=== PATIENT | male | born 1945 | race Caucasian/White ===

== ENCOUNTER → 2020-09-21 13:34 | Outpatient (CLI) | payer MEDICARE, SELFPAY | PROVIDERS: PCP Internal Medicine; Referring Provider Dermatology; Visit Provider Family Medicine | DX: S61.203A Unspecified open wound of left middle finger without damage to nail, initial encounter (principal) | CPT/HCPCS: 11042; 99203; 99213 ==

== ENCOUNTER → 2020-09-23 10:05 | Outpatient (CLI) | payer MEDICARE, SELFPAY | PROVIDERS: PCP Internal Medicine; Referring Provider Internal Medicine; Visit Provider Family Medicine | DX: S61.203A Unspecified open wound of left middle finger without damage to nail, initial encounter (principal) | CPT/HCPCS: 99212 ==

== ENCOUNTER → 2020-09-28 10:41 | Outpatient (CLI) | payer MEDICARE, SELFPAY | PROVIDERS: PCP Internal Medicine; Referring Provider Internal Medicine; Visit Provider Family Medicine | DX: S61.203A Unspecified open wound of left middle finger without damage to nail, initial encounter (principal) | CPT/HCPCS: 11042 ==

== ENCOUNTER → 2020-10-05 11:41 | Outpatient (CLI) | payer MEDICARE, SELFPAY | PROVIDERS: PCP Internal Medicine; Referring Provider Internal Medicine; Visit Provider Family Medicine | DX: S61.203A Unspecified open wound of left middle finger without damage to nail, initial encounter (principal); R60.0 Localized edema | CPT/HCPCS: 11042 ==

== ENCOUNTER → 2020-10-12 11:28 | Outpatient (CLI) | payer MEDICARE, SELFPAY | PROVIDERS: PCP Internal Medicine; Referring Provider Internal Medicine; Visit Provider Family Medicine | DX: S61.203A Unspecified open wound of left middle finger without damage to nail, initial encounter (principal); R60.0 Localized edema | CPT/HCPCS: 99213 ==

== ENCOUNTER → 2020-10-19 09:18 | Outpatient (CLI) | payer MEDICARE, SELFPAY | PROVIDERS: PCP Internal Medicine; Referring Provider Internal Medicine; Visit Provider Family Medicine | DX: S61.203D Unspecified open wound of left middle finger without damage to nail, subsequent encounter (principal) | CPT/HCPCS: 99213 ==

== ENCOUNTER → 2021-01-14 18:56 | Outpatient (ROUT) | payer OTHER, SELFPAY ==
[2021-01-14 19:24] LABS: Add Manual Diff / Slide Review NO; Basophils Absolute Auto 0 /uL (0-100); Eosinophils Absolute Auto 300 /uL (0-450); Eosinophils Percent Auto 7.2 % (2-4); Hematocrit 46.7 % (41-53); Hemoglobin 15.7 g/dL (13.5-17.5); Lymphocytes Absolute Auto 1400 /uL (1100-4500); Lymphocytes Percent Auto 35.5 % (25-40); Mean Corpuscular HGB Conc 33.6 % (30-36); Mean Corpuscular Hemoglobin 31.9 PG (26-34); Mean Corpuscular Volume 95.1 fL (80-100); Monocytes Absolute Auto 300 /uL (0-900); Monocytes Percent Auto 7.2 % (3-14); Neutrophils Absolute Auto 2000 /uL (1500-7000); Neutrophils Percent Auto 49.1 % (50-75); Platelet Count 140 X10^3/uL (150-400); Red Blood Cell Count 4.91 X10^6/uL (4.5-5.9); Red Cell Distribution Width 12.5 % (11.6-14.8)
[2021-01-14 19:34] LABS: Alanine Aminotransferase 21 IU/L (<50); Albumin 4.6 g/dL (3.5-5.0); Albumin Globulin Ratio 1.7 (1.0-2.8); Alkaline Phosphatase 61 U/L (38-126); Aspartate Aminotransferase 28 IU/L (17-59); Bilirubin Total 0.5 mg/dL (0.2-1.3); Bilirubin Unconjugated 0.4 mg/dL (0.0-1.1); Globulin 2.7 g/dL (1.7-4.1); HEMOLYSIS < 15 (0-50); Total Protein 7.3 g/dL (6.3-8.2)
== END ==
PROVIDERS: PCP Internal Medicine; Visit Provider Internal Medicine
DX: E03.9 Hypothyroidism, unspecified (principal)
CPT/HCPCS: 80076; 85025

== ENCOUNTER → 2021-02-21 18:51 | Outpatient (ROUT) | payer OTHER, SELFPAY ==
[2021-02-21 19:42] LABS: Aspartate Aminotransferase 32 IU/L (17-59); BUN Creatinine Ratio 21.4 (6-22); Blood Urea Nitrogen 21 mg/dL (9-20); Calcium 9.7 mg/dL (8.4-10.2); Carbon Dioxide 26 mmol/L (22-32); Chloride 105 mmol/L (98-107); Cholesterol 141 mg/dL (140-199); Estimated Glomerular Filt Rate > 60.0 mL/min (>60); Glucose 103 mg/dL (80-110); HDL Cholesterol 43 mg/dL (40-60); HEMOLYSIS < 15 (0-50); LDL Cholesterol Calculated 78 mg/dL (<100); Potassium 4.4 mmol/L (3.4-5.1); Sodium 140 mmol/L (137-145); Triglycerides 101 mg/dL (35-150)
[2021-02-21 21:06] LABS: Prostate Specific Antigen 0.458 ng/mL (0.10-4.00)
== END ==
PROVIDERS: PCP Internal Medicine; Visit Provider Internal Medicine
DX: E78.2 Mixed hyperlipidemia (principal); N40.0 Benign prostatic hyperplasia without lower urinary tract symptoms
CPT/HCPCS: 80048; 80061; 84153; 84450

== ENCOUNTER → 2021-11-17 15:38 | Outpatient (CLI) | payer OTHER, SELFPAY ==
--- NOTE | 2021-11-17 | DI.US.S_ITS ---
PROCEDURE: US ABDOMEN LIMITED INDICATIONS: RIGHT GROIN LUMP TECHNIQUE: Real-time focused scanning was performed of the abdomen, with image documentation. COMPARISON: None. FINDINGS: Scanning is performed at the area of clinical concern involving the right groin. At the area of the clinical lump, there is a focal lymph node without abnormal vascularity that measures 11 x 9 x 5 mm. An additional adjacent lymph node can be seen with vascularity at the hilum of the lymph node measuring 16 x 14 x 6 mm. IMPRESSION: Prominent right groin lymph nodes are seen, yet without suspicious abnormalities by ultrasound. Dictated by: Lamin Hopkins M.D. on 11/17/2021 at 16:12 Approved by: Lamin Hopkins M.D. on 11/17/2021 at 16:13
== END ==
PROVIDERS: PCP Internal Medicine; Referring Provider Internal Medicine; Visit Provider Internal Medicine
DX: R59.0 Localized enlarged lymph nodes (principal); R19.09 Other intra-abdominal and pelvic swelling, mass and lump
CPT/HCPCS: 76705

== ENCOUNTER → 2021-11-28 10:26 | Outpatient (CLI) | payer MEDICARE, SELFPAY ==
[2021-11-28 12:06] LABS: BUN Creatinine Ratio 15.6 (6-22); Blood Urea Nitrogen 17 mg/dL (9-20); Estimated Glomerular Filt Rate > 60.0 mL/min (>60)
== END ==
PROVIDERS: PCP Internal Medicine; Referring Provider Surgery; Visit Provider Surgery
DX: R19.09 Other intra-abdominal and pelvic swelling, mass and lump (principal)
CPT/HCPCS: 36415; 82565; 84520

== ENCOUNTER → 2021-11-29 11:55 | Outpatient (CLI) | payer MEDICARE, SELFPAY ==
--- NOTE | 2021-11-29 13:12 | DI.CT.S_ITS ---
PROCEDURE: CT ABDOMEN PELVIS W CON INDICATIONS: Right groin mass TECHNIQUE: After the administration of oral and IV contrast, axial sections were acquired from the lung bases to the pubic symphysis. Coronal and sagittal reformats were performed. For radiation dose reduction, the following was used: automated exposure control, adjustment of mA and/or kV according to patient size. COMPARISON: [facility], CT, ABDOMEN/PELVIS WITH CONTRAST, 09/24/2012, 21:08. FINDINGS: Image quality: Excellent. Lung bases: Unremarkable. Heart: No significant findings. ABDOMEN: Liver: Hepatic steatosis. 4 mm hypoattenuating lesion in the right hepatic lobe (2-12), which is incompletely characterized but may represent a cyst or hemangioma. Gallbladder: Within normal limits. Biliary ducts: Unremarkable. Pancreas: Unremarkable. Spleen: Unremarkable. Adrenal Glands: Unremarkable. Kidneys and Ureters: Unremarkable. Stomach and Bowel: No evidence of intestinal inflammatory to change. Extensive descending/sigmoid diverticulosis. Normal appendix. Peritoneum: No abnormal intraperitoneal fluid. No free air. Ventral Wall: Small fat containing periumbilical hernia. Abdominal Nodes: No retroperitoneal or mesenteric adenopathy by size criteria. Vessels: Aorta and inferior vena cava are normal in size. PELVIS: Pelvic Organs: Enlargement of the prostate measuring 5.4 cm in transverse dimension. Bladder: Partially obscured by beam hardening artifact but grossly unremarkable. Pelvic Nodes: No enlarged lymph nodes. Miscellaneous: A fat containing left inguinal hernia is seen with defect measuring 2.[address] abnormality is identified in the right inguinal region as indicated by the metallic BB. Bones: Multifocal degenerative change. Advanced arthrosis of the right hip. Left hip arthroplasty. IMPRESSION: 1. No acute intra-abdominal/pelvic abnormality. Dictated by: Julián Mandujano M.D. on 11/29/2021 at 14:23 Approved by: Julián Mandujano M.D. on 11/29/2021 at 14:32
== END ==
PROVIDERS: PCP Internal Medicine; Referring Provider Surgery; Visit Provider Surgery
DX: R19.09 Other intra-abdominal and pelvic swelling, mass and lump (principal); K76.0 Fatty (change of) liver, not elsewhere classified; K57.30 Diverticulosis of large intestine without perforation or abscess without bleeding; K42.9 Umbilical hernia without obstruction or gangrene; N40.0 Benign prostatic hyperplasia without lower urinary tract symptoms; M16.11 Unilateral primary osteoarthritis, right hip; Z96.642 Presence of left artificial hip joint
CPT/HCPCS: 74177

== ENCOUNTER → 2022-10-30 11:48 | Outpatient (CLI) | payer OTHER, SELFPAY ==
[2022-10-30 12:59] LABS: Hematocrit 43.7 % (41-53); Hemoglobin 15.1 g/dL (13.5-17.5); Mean Corpuscular HGB Conc 34.6 % (30-36); Mean Corpuscular Hemoglobin 32.1 PG (26-34); Platelet Count 176 X10^3/uL (150-400); Red Cell Distribution Width 12.9 % (11.6-14.8); White Blood Cell Count 5.4 X10^3/uL (4.5-11.0)
[2022-10-30 13:18] LABS: Alanine Aminotransferase 22 IU/L (<50); Albumin 4.5 g/dL (3.5-5.0); Albumin Globulin Ratio 1.3 (1.0-2.8); Alkaline Phosphatase 85 U/L (38-126); Aspartate Aminotransferase 26 IU/L (17-59); BUN Creatinine Ratio 17.4 (6-22); Bilirubin Total 0.7 mg/dL (0.2-1.3); Blood Urea Nitrogen 16 mg/dL (9-20); Calcium 9.4 mg/dL (8.4-10.2); Carbon Dioxide 28 mmol/L (22-32); Chloride 101 mmol/L (98-107); Cholesterol 174 mg/dL (140-199); Estimated Glomerular Filt Rate > 60 mL/min (>60); Globulin 3.6 g/dL (1.7-4.1); Glucose 91 mg/dL (80-110); HDL Cholesterol 36 mg/dL (40-60); HEMOLYSIS < 15 (0-50); LDL Cholesterol Calculated 106 mg/dL (<100); Potassium 4.3 mmol/L (3.4-5.1); Sodium 140 mmol/L (137-145); Total Protein 8.1 g/dL (6.3-8.2); Triglycerides 158 mg/dL (35-150)
[2022-10-30 13:48] LABS: Prostate Specific Antigen 0.737 ng/mL (0.10-4.00)
[2022-10-30 13:50] LABS: TSH w/ Reflex to FT4 1.35 uIU/mL (0.47-4.68)
== END ==
PROVIDERS: PCP Internal Medicine; Referring Provider Internal Medicine; Visit Provider Internal Medicine
DX: E78.2 Mixed hyperlipidemia (principal); N40.0 Benign prostatic hyperplasia without lower urinary tract symptoms; I25.10 Atherosclerotic heart disease of native coronary artery without angina pectoris
CPT/HCPCS: 36415; 80053; 80061; 84153; 84443; 85027

== ENCOUNTER → 2023-01-16 13:04 | Outpatient (CLI) | payer OTHER, SELFPAY ==
--- NOTE | 2023-01-16 13:06 | DI.US.S_ITS ---
PROCEDURE: US ABDOMEN LIMITED INDICATIONS: RIGHT GROIN LUMP TECHNIQUE: Real-time focused scanning was performed of the abdomen, with image documentation. COMPARISON: [facility], , US ABDOMEN LIMITED, 11/17/2021, 16:06. FINDINGS: No mass, fluid collection or adenopathy seen. No hernia. IMPRESSION: No right groin abnormality seen sonographically if there is continued clinical concern for mass, consider CT. Dictated by: Juan F Espino [facility] Interpreted: Butch Sparrow MD on 01/16/2023 at 13:43 Transcribed by: TRENA on 01/16/2023 at 13:44 Approved by: Butch Sparrow M.D. on 01/16/2023 at 14:34
== END ==
PROVIDERS: PCP Internal Medicine; Referring Provider Surgery; Visit Provider Surgery
DX: R19.09 Other intra-abdominal and pelvic swelling, mass and lump (principal)
CPT/HCPCS: 76705

== ENCOUNTER → 2023-08-28 11:04 | Outpatient (CLI) | payer OTHER, SELFPAY ==
--- NOTE | 2023-08-28 11:05 | DI.US.S_ITS ---
PROCEDURE: US PERIPH VENOUS LOW EXTREM LT INDICATIONS: left calf pain TECHNIQUE: Real-time imaging, as well as color and pulse Doppler interrogation, were performed of the lower extremity deep veins from the inguinal ligament to the popliteal fossa, with documentation of the visualized calf veins. COMPARISON: None. FINDINGS: The common femoral, femoral, popliteal, and the visualized calf veins are normally compressible, and free of intraluminal thrombus. Color and pulse Doppler demonstrate normal phasic intraluminal flow. There is normal augmentation response to distal compression maneuver. IMPRESSION: No findings of lower extremity deep venous thrombosis. Dictated by: Aamir Chu M.D. on 08/28/2023 at 11:53 Approved by: Aamir Chu M.D. on 08/28/2023 at 11:53
== END ==
PROVIDERS: PCP Internal Medicine; Referring Provider Physician Assistant; Visit Provider Physician Assistant
DX: M79.662 Pain in left lower leg (principal)
CPT/HCPCS: 93971

== ENCOUNTER → 2023-11-01 10:49 | Outpatient (CLI) | payer OTHER, SELFPAY ==
[2023-11-01 11:56] LABS: HEMOLYSIS < 15 (0-50)
[2023-11-01 12:01] LABS: Alanine Aminotransferase 26 IU/L (<50); Albumin 4.5 g/dL (3.5-5.0); Albumin Globulin Ratio 1.4 (1.0-2.8); Alkaline Phosphatase 51 U/L (38-126); Aspartate Aminotransferase 31 IU/L (17-59); BUN Creatinine Ratio 17.3 (6-22); Bilirubin Total 0.8 mg/dL (0.2-1.3); Blood Urea Nitrogen 18 mg/dL (9-20); Carbon Dioxide 28 mmol/L (22-32); Chloride 102 mmol/L (98-107); Cholesterol 115 mg/dL (140-199); Estimated Glomerular Filt Rate > 60 mL/min (>60); Globulin 3.3 g/dL (1.7-4.1); Glucose 100 mg/dL (80-110); HDL Cholesterol 40 mg/dL (40-60); LDL Cholesterol Calculated 56 mg/dL (<100); Potassium 4.5 mmol/L (3.4-5.1); Sodium 139 mmol/L (137-145); Total Protein 7.8 g/dL (6.3-8.2); Triglycerides 97 mg/dL (35-150)
[2023-11-01 12:44] LABS: Prostate Specific Antigen 0.598 ng/mL (0.10-4.00)
== END ==
PROVIDERS: PCP Internal Medicine; Referring Provider Internal Medicine; Visit Provider Internal Medicine
DX: E78.2 Mixed hyperlipidemia (principal); N40.1 Benign prostatic hyperplasia with lower urinary tract symptoms; N13.8 Other obstructive and reflux uropathy
CPT/HCPCS: 36415; 80053; 80061; 84153

== ENCOUNTER → 2024-02-27 13:11 | Outpatient (CLI) | payer OTHER, SELFPAY ==
--- NOTE | 2024-02-27 13:13 | DI.US.S_ITS ---
PROCEDURE: US ABDOMEN LIMITED INDICATIONS: RUQ pain TECHNIQUE: Real-time scanning was performed of the abdominal and retroperitoneal organs, with image documentation. COMPARISON: [facility], CT, CT ABDOMEN PELVIS W CON, 11/29/2021, 13:12. [facility], US, US ABDOMEN LIMITED, 01/16/2023, 13:17. FINDINGS: Liver: Liver is normal in size and homogeneous in echotexture. Gallbladder: No gallstones. No wall thickening. No pericholecystic edema. Negative sonographic Patel's sign. Biliary ducts: Intrahepatic bile ducts are non-dilated. Extrahepatic bile duct caliber measures 5 mm. Normal is 6-7 mm or less in diameter, or 10 mm or less post-cholecystectomy. Pancreas: Visualized portions of the pancreas are sonographically normal. Tail is not well seen due to overlying bowel gas. No right hydronephrosis. IMPRESSION: No acute cholecystitis. No gallstones. Dictated by: Johan Diego M.D. on 02/27/2024 at 15:01 Approved by: Johan Diego M.D. on 02/27/2024 at 15:03
== END ==
LOC: US 13:11
PROVIDERS: PCP Internal Medicine; Referring Provider Internal Medicine; Visit Provider Internal Medicine
DX: R10.11 Right upper quadrant pain (principal); Z90.49 Acquired absence of other specified parts of digestive tract
CPT/HCPCS: 76705

== ENCOUNTER 2024-03-05 19:44 | Inpatient (IN) | payer OTHER, SELFPAY ==
[2024-03-05] VITALS (8 sets, daily range): BP systolic 118–166; BP diastolic 56–78; PULSE 79–96; RESP 20–28; TEMP 36.9–37.7; O2SAT 93–96; BMI 25.0
--- NOTE | 2024-03-05 20:04 | DI.RAD.S_ITS ---
PROCEDURE: XR CHEST 1V INDICATIONS: suspected sepsis TECHNIQUE: One view of the chest was acquired. COMPARISON: [facility], , CHEST 2 VIEW, 09/21/2012, 18:03. FINDINGS: Surgical changes and devices: None. Lungs and pleura: Lungs are clear. No pleural effusions or pneumothorax. Mediastinum: Mediastinal contours appear normal. Heart size is normal. Bones and chest wall: No suspicious bony lesions. Overlying soft tissues appear unremarkable. IMPRESSION: No acute cardiopulmonary abnormality is seen. Dictated by: Johan Diego M.D. on 03/05/2024 at 20:56 Approved by: Johan Diego M.D. on 03/05/2024 at 20:56
[2024-03-05] MEDS: SODIUM CHLORIDE 0.9% 1,000 ML 1000 ML IV (20:14)
[2024-03-05] MEDS: ONDANSETRON 4 MG/2 ML INJ IV (20:14)
[2024-03-05 20:28] LABS: Add Manual Diff / Slide Review NO; Basophils Absolute Auto 0 /uL (0-100); Basophils Percent Auto 0.3 % (0-2); Eosinophils Absolute Auto 0 /uL (0-450); Eosinophils Percent Auto 0.2 % (2-4); Hematocrit 39.9 % (41-53); Hemoglobin 13.9 g/dL (13.5-17.5); Lymphocytes Absolute Auto 300 /uL (1100-4500); Mean Corpuscular HGB Conc 34.9 % (30-36); Mean Corpuscular Hemoglobin 32.5 PG (26-34); Mean Corpuscular Volume 93.2 fL (80-100); Monocytes Absolute Auto 500 /uL (0-900); Monocytes Percent Auto 4.6 % (3-14); Neutrophils Absolute Auto 9100 /uL (1500-7000); Neutrophils Percent Auto 91.9 % (50-75); Platelet Count 146 X10^3/uL (150-400); Red Blood Cell Count 4.28 X10^6/uL (4.5-5.9); Red Cell Distribution Width 12.9 % (11.6-14.8); White Blood Cell Count 9.9 X10^3/uL (4.5-11.0)
[2024-03-05 20:34] LABS: INR 1.3 (0.9-1.3); Prothrombin Time 14.5 SECONDS (9.4-12.5)
[2024-03-05 20:36] LABS: PTT Partial Thromboplastin Tim 35 SECONDS (25.1-36.5)
[2024-03-05 20:41] LABS: Lactate (Lactic Acid) 0.9 mmol/L (0.7-2.1)
[2024-03-05 20:42] LABS: Alanine Aminotransferase 57 IU/L (<50); Albumin 4.6 g/dL (3.5-5.0); Albumin Globulin Ratio 1.6 (1.0-2.8); Alkaline Phosphatase 84 U/L (38-126); Aspartate Aminotransferase 79 IU/L (17-59); BUN Creatinine Ratio 13.6 (6-22); Bilirubin Total 1.4 mg/dL (0.2-1.3); Blood Urea Nitrogen 12 mg/dL (9-20); Calcium 9.1 mg/dL (8.4-10.2); Carbon Dioxide 22 mmol/L (22-32); Chloride 103 mmol/L (98-107); Estimated Glomerular Filt Rate > 60 mL/min (>60); Globulin 2.9 g/dL (1.7-4.1); Glucose 151 mg/dL (80-110); HEMOLYSIS < 15 (0-50); Lipase 59 U/L (23-300); Potassium 3.3 mmol/L (3.4-5.1); Sodium 134 mmol/L (137-145); Total Protein 7.5 g/dL (6.3-8.2)
[2024-03-05 20:58] LABS: Procalcitonin 0.21 ng/mL (<0.5)
--- NOTE | 2024-03-05 22:04 | ED.GENADULT ---
HPI - General Adult General Chief complaint: Fever Stated complaint: fever, had colonoscopy 03/04/24 Time Seen by Provider: 03/05/24 21:01 Source: patient Mode of arrival: Wheelchair History of Present Illness HPI narrative: 78-year-old gentleman with a history chronic constipation and intermittent episodes of abdominal pain, underwent colonoscopy yesterday at the [facility] in [place]. Today complaining of fever to 101.7, weakness, anorexia overall malaise with nausea and vomiting appreciated in triage. He is accompanied by his who reports that she has early alzheimer's disease. She states that she has been concerned about him for the last 3 months with increasing confusion. She thought the colonoscopy was 2 days ago and he came home with a fever after that but did not note that he had 1 this morning. Patient states that he is having some mild speech difficulties, he seems to be quite clear that the fever was today and the colonoscopy was yesterday. He does not recall complaining about abdominal pain. He states he did have hiccups and that was troublesome. He has not complaining of headache, cough, rhinorrhea. He has had 1 bowel movement after his colon prep and colonoscopy that was reportedly normal. He has not complaining of dysuria, no lower extremity edema. No localizing neurologic findings Related Data Home Medications Medication Instructions Recorded Confirmed glucos sul [id number] 1 cap PO DAILY 04/05/22 02/25/24 [Glucosamine Chondroitin] multivitamin 1 tab PO DAILY 04/05/22 02/25/24 omega-3 fatty acids 1,000 mg 1,000 mg PO DAILY 04/05/22 02/25/24 capsule turmeric 500 mg PO DAILY 06/28/23 02/25/24 Previous Rx's Medication Instructions Recorded rosuvastatin 10 mg tablet 10 mg PO DAILY #90 tabs 05/07/23 terbinafine HCl 250 mg tablet 250 mg PO DAILY #10 tabs 06/28/23 Allergies Allergy/AdvReac Type Severity Reaction Status Date / Time No Known Drug Allergies Allergy Verified 02/25/24 11:23 Review of Systems Review of Systems Narrative: Difficult to fully trust questions is answered due to confusion in both the patient and his Patient History Medical History Do not resuscitate BPPV (benign paroxysmal positional vertigo) HSV-1 (herpes simplex virus 1) infection Actinic keratosis Overweight Coronary atherosclerosis Obstructive sleep apnea of adult History of colonic polyps Slow transit constipation 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 Social History marital status: household members: spouse lives independently: Yes occupational status: previously employed Smoking Status: Former smoker alcohol intake: current substance use type: does not use Smoking Status: Former smoker Substance Use Type: does not use Exam Initial Vital Signs Initial Vital Signs: Vital Signs Temperature 100 F H 03/05/24 19:45 Pulse Rate 92 H 03/05/24 19:45 Respiratory Rate 23 03/05/24 19:45 Blood Pressure 166/78 H 03/05/24 19:45 Pulse Oximetry 94 03/05/24 19:45 Oxygen Delivery Method Room Air 03/05/24 19:45 General: Healthy appearing, in no acute distress. HEENT: Moist mucous membranes, normal sclera with reactive pupils, Neck: No JVD, supple Respiratory: Lungs are clear to auscultation, no wheezing no rales no rhonchi. Full and symmetrical air movement Cardiac: Regular rate and rhythm no murmurs no bruits Abdomen: Soft, nontender, good bowel tones, no flank pain Skin: Warm and dry, no rashes Neurologic: Speech is slightly dysarthric with some mild word-finding difficulties and word salad, it does clear as he continues to speak. No other localizing symptoms Extremities: No trauma, well perfused, no edema Psych: Cooperative, oriented to person, time, place and can use appropriate cues to help reorient himself. recollection of Overall events and timeline over the last couple of days is somewhat suspect NIH Stroke Scale/Score 03/06/2024 RESULT SUMMARY: 3 points NIH Stroke Scale INPUTS: 1A: Level of consciousness ?> 1 = Arouses to minor stimulation 1B: Ask month and age ?> 0 = Both questions right 1C: 'Blink eyes' & 'squeeze hands' ?> 0 = Performs both tasks 2: Horizontal extraocular movements ?> 0 = Normal 3: Visual werner ?> 0 = No visual loss 4: Facial palsy ?> 0 = Normal symmetry 5A: Left arm motor drift ?> 0 = No drift for 10 seconds 5B: Right arm motor drift ?> 0 = No drift for 10 seconds 6A: Left leg motor drift ?> 0 = No drift for 5 seconds 6B: Right leg motor drift ?> 0 = No drift for 5 seconds 7: Limb Ataxia ?> 0 = No ataxia 8: Sensation ?> 0 = Normal; no sensory loss 9: Language/aphasia ?> 1 = Mild-moderate aphasia: some obvious changes, without significant limitation 10: Dysarthria ?> 1 = Mild-moderate dysarthria: slurring but can be understood 11: Extinction/inattention ?> 0 = No abnormality Course Orders Ordered: ED Orders 03/05/24 20:04 XR chest 1V Stat EKG-12 Lead Stat RT Consult Eval and Treat NOW 03/05/24 20:08 Complete Blood Count AUTO DIFF Stat Comprehensive Metabolic Panel Stat Lactate (Lactic Acid) Stat Lipase Stat PTT Partial Thromboplastin Zack Stat Procalcitonin Stat Prothrombin Time INR Stat 03/05/24 20:34 Blood Culture Stat 03/05/24 22:28 CT abdomen pelvis w con Stat CT head/brain wo con Stat 03/05/24 22:41 Respiratory Panel (Film Array) Stat Ondansetron HCl (Ondansetron 4 Mg Odt) 4 mg SL NOW PRN PRN Reason: Nausea And Vomiting Discontinued Medications Sodium Chloride (Normal Saline 0.9%) 1,000 mls @ 1,000 mls/hr IV BOLUS ONE Stop: 03/05/24 21:03 Last Infusion: 03/05/24 21:16 Dose: Infused Documented By: Admin: 03/05/24 20:14 Dose: 1,000 mls/hr Documented By: CHASITY Metoclopramide HCl (Metoclopramide 10 Mg/2 Ml Inj) 10 mg IV NOW ONE Stop: 03/05/24 21:02 Last Admin: 03/05/24 21:39 Dose: Not Given Documented By: ADIN Ondansetron HCl (Ondansetron 4 Mg/2 Ml Inj) 4 mg IV NOW PRN PRN Reason: Nausea And Vomiting Last Admin: 03/05/24 20:14 Dose: 4 mg Documented By: CHASITY Vital Signs Vital signs: Vital Signs - 8 hr 03/05/24 19:45 03/05/24 19:56 03/05/24 19:56 Temperature 100 F H Pulse Rate 92 H 96 H Respiratory Rate 23 27 H Blood Pressure 166/78 H 166/78 H Pulse Oximetry 94 Oxygen Delivery Method Room Air 05/15/24 20:00 03/05/24 20:00 03/05/24 20:30 Temperature Pulse Rate 90 Respiratory Rate 28 H Blood Pressure 148/62 H 128/62 Pulse Oximetry 94 Oxygen Delivery Method 03/05/24 20:30 03/05/24 21:00 03/05/24 21:00 Temperature Pulse Rate 87 83 Respiratory Rate 26 H 28 H Blood Pressure 126/60 Pulse Oximetry 96 95 Oxygen Delivery Method 03/05/24 21:30 03/05/24 21:30 03/05/24 22:00 Temperature 98.5 F Pulse Rate 82 79 Respiratory Rate 20 20 Blood Pressure 127/59 L Pulse Oximetry 95 95 Oxygen Delivery Method 03/05/24 22:00 03/05/24 22:30 03/05/24 22:30 Temperature Pulse Rate 80 Respiratory Rate 21 Blood Pressure 122/62 118/56 L Pulse Oximetry 93 Oxygen Delivery Method 03/06/24 00:34 03/06/24 00:34 Temperature Pulse Rate 86 Respiratory Rate Blood Pressure 128/62 Pulse Oximetry 96 Oxygen Delivery Method Medical Decision Making Lab Data 03/05/24 20:08 03/05/24 20:08 Labs: Lab Results 03/05/24 03/05/24 Range/Units 20:08 22:41 WBC 9.9 (4.5-11.0) X10^3/uL RBC 4.28 L (4.5-5.9) X10^6/uL Hgb 13.9 (13.5-17.5) g/dL Hct 39.9 L (41-53) % MCV 93.2 (80-100) fL MCH 32.5 (26-34) PG MCHC 34.9 (30-36) % RDW 12.9 (11.6-14.8) % Plt Count 146 L (150-400) X10^3/uL Neut % (Auto) 91.9 H (50-75) % Lymph % (Auto) 3.0 L (25-40) % [place] % (Auto) 4.6 (3-14) % Eos % (Auto) 0.2 L (2-4) % Baso % (Auto) 0.3 (0-2) % Neut # (Auto) 9100 H (1483-1164) /uL Lymph # (Auto) 300 L (9709-1565) /uL [place] # (Auto) 500 (0-900) /uL Eos # (Auto) 0 (0-450) /uL Baso # (Auto) 0 (0-100) /uL PT 14.5 H (9.4-12.5) SECONDS INR 1.3 (0.9-1.3) APTT 35 (25.1-36.5) SECONDS Sodium 134 L (137-145) mmol/L Potassium 3.3 L (3.4-5.1) mmol/L Chloride 103 (98-107) mmol/L Carbon Dioxide 22 (22-32) mmol/L BUN 12 (9-20) mg/dL Creatinine 0.88 (0.66-1.25) mg/dL Estimated GFR > 60 (>60) mL/min BUN/Creatinine Ratio 13.6 (6-22) Glucose 151 H (80-110) mg/dL Lactate 0.9 (0.7-2.1) mmol/L Calcium 9.1 (8.4-10.2) mg/dL Total Bilirubin 1.4 H (0.2-1.3) mg/dL AST 79 H (17-59) IU/L ALT 57 H (<50) IU/L Alkaline Phosphatase 84 (38-126) U/L Total Protein 7.5 (6.3-8.2) g/dL Albumin 4.6 (3.5-5.0) g/dL Globulin 2.9 (1.7-4.1) g/dL Albumin/Globulin Ratio 1.6 (1.0-2.8) Lipase 59 (23-300) U/L Procalcitonin 0.21 (<0.5) ng/mL Chlamy pneumoniae PCR Not detected (Not Detect) Adenovirus (PCR) Not detected (Not Detect) B.parapertussis DNA PCR Not detected (Not Detecte) Coronavirus OC43 (PCR) Not detected (Not Detect) Coronavirus HKU1 (PCR) Not detected (Not Detect) Coronavirus 229E (PCR) Not detected (Not Detect) SARS-CoV-2 (PCR) Not detected (Not Detecte) Coronavirus NL63 (PCR) Not detected (Not Detect) Human Metapneumovir PCR Not detected (Not Detect) Influenza Type A (PCR) Not detected (Not Detect) Influenza Type B (PCR) Not detected (Not Detect) M. pneumoniae (PCR) Not detected (Not Detect) Parainfluenza 1 (PCR) Not detected (Not Detect) Parainfluenza 2 (PCR) Not detected (Not Detect) Parainfluenza 3 (PCR) Not detected (Not Detect) Parainfluenza 4 (PCR) Not detected (Not Detect) RSV (PCR) Not detected (Not Detect) Entero/Rhino (PCR) Not detected (Not Detect) Urine Dip Bedside Urine Glucose Negative Bedside Urine Bilirubin - Negative Bedside Urine Ketone - Negative Urine Specific [place] 1.015 Bedside Urine Occult Blood - Negative Bedside Urine pH 6.0 Bedside Urine Protein - Negative Bedside Urine Urobilinogen - Negative Bedside Urine Nitrite - Negative Bedside Urine Leukocytes - Negative Esterase Point of care testing: Urine Dip Bedside Urine Glucose Negative Bedside Urine Bilirubin - Negative Bedside Urine Ketone - Negative Urine Specific [place] 1.015 Bedside Urine Occult Blood - Negative Bedside Urine pH 6.0 Bedside Urine Protein - Negative Bedside Urine Urobilinogen - Negative Bedside Urine Nitrite - Negative Bedside Urine Leukocytes - Negative Esterase Imaging Data CT scan - abdomen/pelvis: Radiologist's Impression: PROCEDURE: CT ABDOMEN PELVIS W CON INDICATIONS: abdominal pain post colonoscopy yesterday TECHNIQUE: After the administration of intravenous contrast, axial sections acquired from the lung bases to the pubic symphysis. Coronal and sagittal reformats were performed. For radiation dose reduction, the following was used: automated exposure control, adjustment of mA and/or kV according to patient size. COMPARISON: [facility], CT, ABDOMEN/PELVIS WITH CONTRAST, 09/24/2012, 21:08. [facility], CT, CT ABDOMEN PELVIS W CON, 11/29/2021, 13:12. FINDINGS: Image quality: Diagnostic. Lower Chest: No significant findings. ABDOMEN: Liver: No solid mass. Gallbladder: No radiopaque gallstones or wall thickening. Biliary ducts: No biliary dilation. Pancreas: No ductal dilation. Small nodule at the tail the pancreas, (4/), unchanged since 2011. This suggests a benign abnormality. This could be an intra pancreatic splenule. Spleen: Size is within normal limits. Small splenule. Adrenal Glands: No adrenal nodules. Kidneys and Ureters: No hydronephrosis. No solid mass. No complex renal cystic lesion which requires follow up. Stomach and Bowel: Extensive diverticulosis. Inflammatory change at the splenic flexure. There is wall thickening and pericolonic edema. The appendix is not dilated. No small bowel obstruction. Stomach is within normal limits. Peritoneum: No ascites. No pneumoperitoneum. Ventral Wall: No significant ventral hernia. Abdominal Nodes: No retroperitoneal or mesenteric adenopathy by size criteria. Vessels: Aorta and inferior vena cava are normal in size. PELVIS: Pelvic Organs: Unremarkable. Bladder: No bladder wall thickening, accounting for underdistention. Pelvic Nodes: No enlarged lymph nodes. Miscellaneous: No inguinal hernias are seen. Bones: No aggressive osseous abnormality. Bilateral hip arthroplasties. Lower lumbar spine DDD. IMPRESSION: 1. Colitis at the splenic flexure. 2. No pneumoperitoneum. No bowel obstruction. 3. Extensive diverticulosis. Dictated by: Johan Diego M.D. on 03/06/2024 at 0:15 MDM Narrative Medical decision making narrative: CC: Abdominal pain, fever, confusion Complicating co-morbidities: History is difficult to obtain. Colonoscopy yesterday. Data collected from: patient, Social determinants of health that may influence the patients condition: Medical records reviewed: Primary care notes Differential considered: Viral syndrome, stroke, bowel perforation Exam documented above, pertinent findings include: Patient does seem to have some mild dysarthria, overall cognitive slowing, word-finding difficulty. It is unclear if this is new, old or progressive. No significant abdominal tenderness Lab Test results independently reviewed as above. Pertinent findings: CBC is unremarkable. He does not have a significant leukocytosis however white count is at 9.9 and he does have 91.9% neutrophils. Chemistries show a slightly low potassium at 3.3 but he has just completed a full bowel prep. Creatinine is appropriate. Mild elevation to bilirubin at 1.3, AST 79 and ALT at 57. These are all minimally elevated compared to October of 2023 Respiratory panel as unremarkable with no virus detected Procalcitonin is not elevated, Lipase is within normal limits Independently reviewed EKG: Sinus rhythm at a rate of 86. Normal intervals, normal axis. No acute ischemic changes Imaging studies independently reviewed: Head CT does not show any acute findings Consultations: Son is available to help corroborate story. He states that the colonoscopy was on the morning of the , he drove his father to the appointment. Father seemed to be doing fine with cognitively appropriate with normal speech and thought content at that time. He spoke with him on the morning of the and again noted no concerns or changes. He is available in the emergency department currently and does note change in verbal fluency, dysarthria and is wondering if there maybe even be a subtle facial droop. Given this, the son noted that his last contact with his father was around 1:00 the afternoon of the when he was not having symptoms. Discussion: 78-year-old gentleman comes in with his with reports of a fever and confusion. Fever is not corroborated. No evidence of infection and CT scan done of the abdomen after colonoscopy on March 04 does not show any acute findings. Patient is confused is also confused. Once their son is involved I am able to get a more coherent history and it does seem like he has an acute neurologic change with an NIH score of 3 with both dysarthria and some word-finding/word salad difficulties. Last known well was 1:00 p.m. on the afternoon of March 05. Because of the timing in the uncertain diagnosis, he is not a thrombolytic candidate and this is reviewed with the son and the . Patient is sleeping comfortably at this time. Will talk to the hospitalist about admitting him with concerns for stroke/TIA. We will obtain a CT angiogram and he has no contraindications for a brain MRI. Discharge Plan Departure Patient Disposition: Admitted As Inpatient Clinical Impression: Stroke Qualifiers: CVA mechanism: unspecified Qualified Code(s): I63.9 - Cerebral infarction, unspecified
--- NOTE | 2024-03-05 22:28 | DI.CT.S_ITS ---
PROCEDURE: CT ABDOMEN PELVIS W CON INDICATIONS: abdominal pain post colonoscopy yesterday TECHNIQUE: After the administration of intravenous contrast, axial sections acquired from the lung bases to the pubic symphysis. Coronal and sagittal reformats were performed. For radiation dose reduction, the following was used: automated exposure control, adjustment of mA and/or kV according to patient size. COMPARISON: [facility], CT, ABDOMEN/PELVIS WITH CONTRAST, 09/24/2012, 21:08. [facility], CT, CT ABDOMEN PELVIS W CON, 11/29/2021, 13:12. FINDINGS: Image quality: Diagnostic. Lower Chest: No significant findings. ABDOMEN: Liver: No solid mass. Gallbladder: No radiopaque gallstones or wall thickening. Biliary ducts: No biliary dilation. Pancreas: No ductal dilation. Small nodule at the tail the pancreas, (4/31), unchanged since 2011. This suggests a benign abnormality. This could be an intra pancreatic splenule. Spleen: Size is within normal limits. Small splenule. Adrenal Glands: No adrenal nodules. Kidneys and Ureters: No hydronephrosis. No solid mass. No complex renal cystic lesion which requires follow up. Stomach and Bowel: Extensive diverticulosis. Inflammatory change at the splenic flexure. There is wall thickening and pericolonic edema. The appendix is not dilated. No small bowel obstruction. Stomach is within normal limits. Peritoneum: No ascites. No pneumoperitoneum. Ventral Wall: No significant ventral hernia. Abdominal Nodes: No retroperitoneal or mesenteric adenopathy by size criteria. Vessels: Aorta and inferior vena cava are normal in size. PELVIS: Pelvic Organs: Unremarkable. Bladder: No bladder wall thickening, accounting for underdistention. Pelvic Nodes: No enlarged lymph nodes. Miscellaneous: No inguinal hernias are seen. Bones: No aggressive osseous abnormality. Bilateral hip arthroplasties. Lower lumbar spine DDD. IMPRESSION: 1. Colitis at the splenic flexure. 2. No pneumoperitoneum. No bowel obstruction. 3. Extensive diverticulosis. Dictated by: Johan Diego M.D. on 03/06/2024 at 0:15 Approved by: Johan Diego M.D. on 03/06/2024 at 0:21
--- NOTE | 2024-03-05 22:28 | DI.CT.S_ITS ---
PROCEDURE: CT HEAD/BRAIN WO CON INDICATIONS: altered mental status TECHNIQUE: Noncontrast 4.5 mm thick angled axial sections acquired from the foramen magnum to the vertex, with coronal and sagittal reformats. For radiation dose reduction, the following was used: automated exposure control, adjustment of mA and/or kV according to patient size. COMPARISON: None. FINDINGS: Image quality: Diagnostic. CSF spaces: Basal cisterns are patent. No extra-axial fluid collections. Ventricles are normal in size and shape. Brain: No midline shift. No intracranial masses or hemorrhage. No area of hypodensity in a large vascular distribution to suggest acute infarction. Periventricular hypodensity consistent with chronic microvascular ischemic change. Age-related parenchymal loss. Skull and face: Calvarium and visualized facial bones are intact, without suspicious lesions. Sinuses: Left maxillary sinus and ethmoid sinus and left sphenoid sinus mucosal thickening. Mastoids are otherwise clear. IMPRESSION: No acute intracranial pathology. Dictated by: Johan Diego M.D. on 03/05/2024 at 23:33 Approved by: Johan Diego M.D. on 03/05/2024 at 23:35
[2024-03-05 23:41] LABS: Adenovirus Not Detected (Not Detect); B. parapertussis Not Detected (Not Detecte); Bordetella pertussis Not Detected (Not Detect); Chlamydophila pneumoniae Not Detected (Not Detect); Coronavirus 229E Not Detected (Not Detect); Coronavirus HKU1 Not Detected (Not Detect); Coronavirus NL 63 Not Detected (Not Detect); Coronavirus OC43 Not Detected (Not Detect); Human Metapneumovirus Not Detected (Not Detect); Human Rhinovirus/Enterovirus Not Detected (Not Detect); Influenza A Not Detected (Not Detect); Influenza B Not Detected (Not Detect); Mycoplasma pneumoniae Not Detected (Not Detect); Parainfluenza Virus 1 Not Detected (Not Detect); Parainfluenza Virus 2 Not Detected (Not Detect); Parainfluenza Virus 3 Not Detected (Not Detect); Parainfluenza Virus 4 Not Detected (Not Detect); Respiratory Syncytial Virus Not Detected (Not Detect); SARS- CoV-2 Not Detected (Not Detecte)
[2024-03-06] VITALS (29 sets, daily range): BP systolic 100–170; BP diastolic 49–74; PULSE 72–110; RESP 16–28; TEMP 36.8–38.6; O2SAT 91–98; BMI 25.0
--- NOTE | 2024-03-06 | DI.ECHO.S_ITS ---
[facility] : : [address] : : [place] : : [id number] : : Phone: [phone] Echocardiogram Report + + :Name: LEONID SMITH Study Date: 03/06/2024 Height: 67 in : :[facility] ReadingLocation: Weight: 160 lb : : Gender: Male BSA: 1.8 m2 : :: 1945 Age: 78 yrs BP: 103/49 mmHg: :Reason For Study: TIA : :Ordering Physician: ZITA, : :KAREN Performed By: Kinsey Pinon : :Referring: KAREN AHUMADA : + + Interpretation Summary Normal sinus rhythm. Normal LV size and wall thickness. Normal wall motion and LV systolic function. Ejection fraction 60-65%. Mild left atrial enlargement ; otherwise normal chamber sizes. Aortic sclerosis without stenosis; mild mitral annular calcification. These findings do not represent significant valvular abnormalities. No source of embolism found. No prior study available for comparison. Procedure: A two-dimensional transthoracic echocardiogram with color flow and Doppler was performed. The study quality was technically adequate. There is no prior echocardiogram noted for this patient. The patient was in sinus rhythm with heart rates between 68-74 bpm during the exam. Left Ventricle: The left ventricle is normal in size and wall thickness. The ejection fraction is estimated to be 60-65%. Right Ventricle: The right ventricle is normal in size and function. Atria: The left atrium is mildly dilated. Right atrial size is normal. There is no Doppler evidence for an interatrial shunt. Mitral Valve: There is mild mitral annular calcification. The mitral valve leaflets appear mildly thickened, but open well. There is mild mitral regurgitation. Aortic Valve: The aortic valve is trileaflet. The aortic valve opens well. The aortic valve is slightly calcified. There is no aortic valve stenosis. There is mild aortic regurgitation. Tricuspid Valve: The tricuspid valve is normal in structure and function. There is mild to moderate tricuspid regurgitation. Pulmonic Valve: The pulmonic valve leaflets are thin and pliable; valve motion is normal. There is trace pulmonic regurgitation. Great Vessels: The aortic root is normal size. The dimensions of the ascending aorta are normal. The IVC is of normal diameter and collapses greater than 50% with a sniff. This suggests a low right atrial pressure of 3 mm Hg. Pericardium/ Pleura There is no pericardial effusion. There is no pleural effusion. MMode/2D Measurements & Calculations LVIDd: 5.1 cm LVOT diam: 2.2 cm LVIDs: 3.3 cm Ao root diam: 3.6 cm FS: 36.3 % asc Aorta Diam: 3.6 cm EPSS: 0.67 cm IVSd: 0.94 cm LVPWd: 0.84 cm LV landis. diameter/BSA (cm/m^2): 2.8 LV sys. diameter/BSA (cm/m^2): 1.8 LA A2 area: 22.9 cm2 RA long axis: 5.2 cm LA A4 area: 17.8 cm2 RA area: 17.3 cm2 LA length (vol): 5.4 cm RA vol: 49.2 ml LA vol: 64.4 ml RA : 26.8 ml/m2 LA vol index: 35.0 ml/m2 IVC diam: 1.8 cm RVD1 (basal): 3.8 cm TAPSE: 2.6 cm Doppler Measurements & Calculations Ao V2 max: 186.3 cm/sec LVOT Max José Miguel: 112.6 cm/sec Ao V2 mean: 138.5 cm/sec LV V1 max P.1 mmHg Ao max P.9 mmHg LV V1 VTI: 21.7 cm Ao mean P.2 mmHg LUPE(I,D): 2.1 cm2 Ao V2 VTI: 40.6 cm LUPE(V,D): 2.4 cm2 sev ratio: 0.53 LUPE indexed to BSA (cm^2/m^2): 1.1 MV E max josé miguel: 88.2 cm/sec TR max josé miguel: 266.1 cm/sec MV A max josé miguel: 67.2 cm/sec TR max P.5 mmHg MV E/A: 1.3 PA V2 max: 88.8 cm/sec Med Peak E' José Miguel: 10.0 cm/sec PA V2 mean: 70.9 cm/sec E/E' med: 8.8 PA mean P.1 mmHg Lat Peak E' José Miguel: 7.1 cm/sec PA pr(Accel): 29.3 mmHg E/E' lat: 12.5 E/e' average: 10.7 MV dec time: 0.20 sec SV(LVCAROLYN): 85.3 ml Electronically signed by: Esme Silver M.D. on Reading Physician:03/06/2024 03:26 PM
--- NOTE | 2024-03-06 01:05 | DI.CT.S_ITS ---
PROCEDURE: CT ANGIO HEAD AND NECK INDICATIONS: stroke TECHNIQUE: After the administration of intravenous contrast, 1 mm thick sections acquired from the aortic arch through the [place]. 3-dimensional nvdosoq-ewsholqmk-sqlthwwjaa (MIP) and/or volume rendering reformats were acquired of the central intracranial vasculature and neck separately. For radiation dose reduction, the following was used: automated exposure control, adjustment of mA and/or kV according to patient size. COMPARISON: [facility], CT, CT HEAD/BRAIN WO [facility], 03/05/2024, 22:41. FINDINGS: Image quality: Diagnostic. BRAIN: CSF spaces: Ventricles are normal in size and shape. Basal cisterns are patent. No extra-axial fluid collections. Brain: No significant abnormality of the brain can be seen. Skull and face: Calvarium and facial bones appear intact, without suspicious lesions. Orbits appear normal. Sinuses: Left maxillary and paranasal sinus frontal sinus mucosal thickening. Mastoids are clear. HEAD CT ANGIOGRAPHY: Anterior circulation: Intracranial internal carotid arteries are normal in size and flow. The flow within the paired anterior cerebral arteries is normal and symmetric. The flow within the middle cerebral arteries is normal and symmetric. The anterior communicating artery is seen. No aneurysms are seen. origin of the left ROD WELDER. Posterior circulation: Visualized portions of the vertebral arteries demonstrate normal caliber, and join to form a normal appearing basilar artery. Flow within the posterior cerebral arteries is normal and symmetric. No aneurysms are seen. NECK CT ANGIOGRAPHY: Carotid system: The great vessels demonstrate a conventional anatomy as they arise from the aortic arch. The origins of the common carotid arteries appear patent. The common carotid arteries demonstrate normal caliber and courses. The bifurcation regions are both widely patent. The internal carotid arteries demonstrate normal calibers and courses. Less than 50% stenosis at the bilateral ICA. Moderate calcified plaque. Posterior circulation: The origins of the vertebral arteries both appear widely patent. The more superior extracranial portions of both vertebral arteries also demonstrate normal courses and calibers. They join to form a normal appearing basilar artery. Soft tissues: Visualized neck soft tissues demonstrate no suspicious abnormalities. Bones: No suspicious bony lesions. Moderate degenerative changes in the cervical spine. Visualized cervical spine appears normally aligned. IMPRESSION: 1. No acute intracranial hemorrhage. 2. No large vessel occlusion. 3. No critical stenosis. Any quantitative measurements of stenosis were performed using NASCET criteria. Dictated by: Johan Diego M.D. on 03/06/2024 at 2:00 Approved by: Johan Diego M.D. on 03/06/2024 at 2:06
--- NOTE | 2024-03-06 01:05 | DI.MRI.S_ITS ---
/PROCEDURE: MR HEAD/BRAIN WO CON INDICATIONS: stroke TECHNIQUE: Non-contrast axial T1 spin echo, axial T2 fast spin echo, sagittal and axial FLAIR, coronal T2 fast spin echo, axial gradient echo, axial diffusion and ADC through the brain. COMPARISON: [facility], CT, CT ANGIO HEAD AND NECK, 03/06/2024, 1:15. FINDINGS: Image quality: Excellent. CSF spaces: Ventricles appear symmetric in size and shape. Basal cisterns are patent. No extra-axial fluid collections. Brain: No intracranial bleeds or mass effects. There is cerebral volume loss for age. There are very minimal, age-appropriate periventricular and deep white matter chronic small vessel ischemic changes. Brainstem appears normal. Diffusion-weighted images show no acute infarct. No chronic ischemic insults. Normal intravascular flow voids are present. Skull and face: Calvarial bone marrow is normal in signal. Orbits are normal. Sinuses: Patchy ethmoid opacification bilaterally consistent with chronic sinus disease. Small left maxillary sinus mucous retention cyst. Mild bilateral maxillary sinus mucosal thickening, left greater than right. Mastoids are clear. IMPRESSION: 1. Normal appearing brain parenchyma for patient age. No acute intracranial process. 2. Chronic sinusitis. Dictated by: Ridge Elaine M.D. on 03/06/2024 at 8:27 Approved by: Ridge Elaine M.D. on 03/06/2024 at 8:29
[2024-03-06] MEDS: ACETAMINOPHEN 325 MG TABLET 650 MG PO (03:53)
[2024-03-06] MEDS: metroNIDAZOLE 500 MG/100 ML PIGGYBACK 100 MG IV ×3 (05:35→20:17)
[2024-03-06 05:44] LABS: BUN Creatinine Ratio 12.2 (6-22); Blood Urea Nitrogen 11 mg/dL (9-20); Calcium 8.5 mg/dL (8.4-10.2); Carbon Dioxide 22 mmol/L (22-32); Chloride 107 mmol/L (98-107); Cholesterol 71 mg/dL (140-199); Estimated Glomerular Filt Rate > 60 mL/min (>60); Glucose 121 mg/dL (80-110); HDL Cholesterol 40 mg/dL (40-60); HEMOLYSIS < 15 (0-50); LDL Cholesterol Calculated 21 mg/dL (<100); Potassium 3.1 mmol/L (3.4-5.1); Sodium 136 mmol/L (137-145); Triglycerides 52 mg/dL (35-150)
[2024-03-06 05:59] LABS: Hemoglobin A1C% w Est Avg Glu 5.1 % (4.0-6.0)
--- NOTE | 2024-03-06 06:15 | PM.HP.1 ---
History of Present Illness History of Present Illness Chief complaint: fever, had colonoscopy 03/04/24 Narrative: 78 years old male with history of hyperlipidemia, obstructive sleep apnea, constipation, allergic rhinitis, coronary artery disease, morbidly obese presented to the ER with fever of 101.7, weakness, anorexia, malaise, nausea, vomiting and increased confusion 1 day after he had colonoscopy 2 days ago. He also had increased confusion and mild speech deficiency. Denies any other symptoms. Laboratory shows WBC 9.9, potassium 3.3, blood sugar 151, AST 79, ALT is 57, INR 1.3, sodium 134, bili 0.8, total bilirubin 1.4, respiratory viral panel negative. CTA of head and neck was unremarkable. Abdominal CT scan shows colitis at the splenic flexure and extensive diverticulosis. Initially the patient was preliminary diagnosed with TIA/CVA due to confusion. Given fluid boluses and Reglan. [facility] Medical History Do not resuscitate BPPV (benign paroxysmal positional vertigo) HSV-1 (herpes simplex virus 1) infection Actinic keratosis Overweight Coronary atherosclerosis Obstructive sleep apnea of adult History of colonic polyps Slow transit constipation 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 Social History marital status: household members: spouse lives independently: Yes occupational status: previously employed Smoking Status: Former smoker alcohol intake: current substance use type: does not use Meds Home Medications and Allergies Home Medications Medication Instructions Recorded Confirmed Type glucos sul [id number] 1 cap PO DAILY 04/05/22 02/25/24 History [Glucosamine Chondroitin] multivitamin 1 tab PO DAILY 04/05/22 02/25/24 History omega-3 fatty acids 1,000 mg 1,000 mg PO DAILY 04/05/22 02/25/24 History capsule rosuvastatin 10 mg tablet 10 mg PO DAILY #90 tabs 05/07/23 02/25/24 Rx terbinafine HCl 250 mg tablet 250 mg PO DAILY #10 tabs 06/28/23 02/25/24 Rx turmeric 500 mg PO DAILY 06/28/23 02/25/24 History Allergies Allergy/AdvReac Type Severity Reaction Status Date / Time No Known Drug Allergies Allergy Verified 02/25/24 11:23 Review of Systems Review of Systems ROS: Yes All systems reviewed with the patient and are negative except as otherwise documented Constitutional Constitutional: Reports as per HPI and Reports system reviewed and no additional complaints, except as documented Eyes Eyes: Reports as per HPI and Reports system reviewed and no additional complaints, except as documented ENT Ears, Nose, Mouth, and Throat: Yes as per HPI and Yes system reviewed and no additional complaints, except as documented Cardiovascular Cardiovascular: Reports system reviewed and no additional complaints, except as documented Respiratory Respiratory: Reports system reviewed and no additional complaints, except as documented Gastrointestinal Gastrointestinal: Reports system reviewed and no additional complaints, except as documented Genitourinary Genitourinary: Reports system reviewed and no additional complaints, except as documented Musculoskeletal Musculoskeletal: Reports system reviewed and no additional complaints, except as documented, Reports abnormal gait and Reports numbness Neurologic Neurologic: Reports system reviewed and no additional complaints, except as documented, Reports abnormal gait, Reports confusion and Reports numbness Psychiatric Psychiatric: Reports system reviewed and no additional complaints, except as documented and Reports confusion Exam Vital Signs (past 8 hours): - 03/05/24 22:30 03/05/24 22:30 03/06/24 00:34 Temperature Pulse Rate 80 86 Respiratory Rate 21 Blood Pressure 118/56 L Pulse Oximetry 93 96 03/06/24 00:34 03/06/24 01:00 03/06/24 01:00 Temperature Pulse Rate 78 Respiratory Rate 21 Blood Pressure 128/62 119/58 L Pulse Oximetry 96 03/06/24 01:30 03/06/24 01:30 03/06/24 02:00 Temperature Pulse Rate 97 H 91 H Respiratory Rate 19 21 Blood Pressure 148/68 H Pulse Oximetry 97 97 03/06/24 02:00 03/06/24 02:30 03/06/24 02:30 Temperature Pulse Rate 88 Respiratory Rate 21 Blood Pressure 136/63 131/61 Pulse Oximetry 96 03/06/24 03:00 03/06/24 03:00 03/06/24 03:37 Temperature Pulse Rate 87 110 H Respiratory Rate 20 26 H Blood Pressure 122/58 L Pulse Oximetry 95 03/06/24 03:39 03/06/24 03:39 03/06/24 03:47 Temperature 101.4 F H Pulse Rate 104 H Respiratory Rate 24 Blood Pressure 170/74 H Pulse Oximetry 95 03/06/24 04:00 03/06/24 04:00 03/06/24 05:48 Temperature 98.5 F Pulse Rate 93 H Respiratory Rate 25 H Blood Pressure 153/65 H Pulse Oximetry 94 Oxygen Delivery Method Room Air Const General: cooperative, comfortable and well developed Orientation: alert and oriented x3 [facility] Head: normal to inspection, normocephalic and atraumatic Face and sinus: normal facial exam Mouth: oral mucosae normal and moist mucous membranes Throat: posterior oropharynx normal Eyes General: appearance normal, both eyes and all related structures Pupils: PERRL EOM: EOM intact bilaterally Neck Neck: normal visual inspection and full ROM Chest Chest: normal inspection of the chest Resp Effort & Inspection: normal respiratory effort and able to speak in complete sentences Auscultation: clear to auscultation bilaterally Cardio Palpation: normal PMI Rate: regular rate Rhythm: regular rhythm Heart Sounds: S1 normal and S2 normal GI Inspection: normal to inspection Palpation: soft and no hepatosplenomegaly Auscultation: normal bowel sounds Skin General: no rashes or lesions noted Lesions: no lesions Rashes: no rashes Trauma: no lacerations or abrasions Neuro General: patient alert, patient awake, patient oriented x3 and no focal motor deficits Cranial Nerves: CN's II-XI intact bilaterally Cognition: normal cognition Speech: speech normal Gait: normal gait Motor: muscle tone normal throughout Sensory Exam: no sensory deficits noted Extrem General: full ROM and no calf tenderness Psych Appearance: grossly normal Mental Status: mental status grossly normal Speech and Movement: speech and movement normal Objective Labs 03/05/24 20:08 03/06/24 05:25 Labs: Laboratory Results - last 24 hr 03/05/24 03/05/24 03/06/24 20:08 22:41 05:25 WBC 9.9 RBC 4.28 L Hgb 13.9 Hct 39.9 L MCV 93.2 MCH 32.5 MCHC 34.9 RDW 12.9 Plt Count 146 L Neut % (Auto) 91.9 H Lymph % (Auto) 3.0 L Hanson % (Auto) 4.6 Eos % (Auto) 0.2 L Baso % (Auto) 0.3 Neut # (Auto) 9100 H Lymph # (Auto) 300 L Hanson # (Auto) 500 Eos # (Auto) 0 Baso # (Auto) 0 PT 14.5 H INR 1.3 APTT 35 Sodium 134 L 136 L Potassium 3.3 L 3.1 L Chloride 103 107 Carbon Dioxide 22 22 BUN 12 11 Creatinine 0.88 0.90 Estimated GFR > 60 > 60 BUN/Creatinine Ratio 13.6 12.2 Glucose 151 H 121 H Hemoglobin A1c 5.1 Lactate 0.9 Calcium 9.1 8.5 Total Bilirubin 1.4 H AST 79 H ALT 57 H Alkaline Phosphatase 84 Total Protein 7.5 Albumin 4.6 Globulin 2.9 Albumin/Globulin Ratio 1.6 Triglycerides 52 Cholesterol 71 L LDL Cholesterol, Calc 21 HDL Cholesterol 40 Lipase 59 Procalcitonin 0.21 Chlamy pneumoniae PCR Not detected Adenovirus (PCR) Not detected B.parapertussis DNA PCR Not detected Coronavirus OC43 (PCR) Not detected Coronavirus HKU1 (PCR) Not detected Coronavirus 229E (PCR) Not detected SARS-CoV-2 (PCR) Not detected Coronavirus NL63 (PCR) Not detected Human Metapneumovir PCR Not detected Influenza Type A (PCR) Not detected Influenza Type B (PCR) Not detected M. pneumoniae (PCR) Not detected Parainfluenza 1 (PCR) Not detected Parainfluenza 2 (PCR) Not detected Parainfluenza 3 (PCR) Not detected Parainfluenza 4 (PCR) Not detected RSV (PCR) Not detected Entero/Rhino (PCR) Not detected Assessment & Plan Assessment & Plan narrative: Preliminary working diagnosed with TIA- Initial CT head and CT angiogram shows no obvious abnormality. -ASA, -ECHO, MRI of the brain -Telemetry monitoring, Serial neurochecks -Strict bedrest for now -Monitor hemodynamics -Continue IV fluids -n.p.o. for now -Check lipid panel in a.m., thyroid function test, blood sugar monitoring, -PT/OT and swallowing evaluation in a.m. Acute colitis splenic flexure, status post colonoscopy 2 days ago. -Will start the patient on Cipro and Flagyl IV -Follow-up on the blood cultures -IV fluids -Pain medications, antiemetics and Tylenol for fever as needed -Check for C. difficile infection Hypokalemia. Replace and monitor. Mild hyperglycemia. Suspect due to infection. Check A1c and monitor Mildly elevated LFTs with total bilirubin. Will send acute hepatitis panel and order hepatobiliary ultrasound Hyperlipidemia. Restart rosuvastatin and check lipids Time Spent With Patient Time with patient: 50 to 69 minutes with 50% spent counseling/coordinating care Quality VTE Deep Vein Thrombosis/Pulmonary Embolism Present on Admission: No MIPS - Admit I confirm the patient?s Advance Care Plan is present, Code status is documented, Surrogate decision maker is in patient?s record [If Yes, STOP here]: Yes MIPS - Meds 'Current medications' to include all prescriptions, [id number] products, herbals, cannabis/cannabidiol products, and vitamin/mineral/dietary (nutritional) supplements. I have utilized all available resources to obtain, update, or review the patient?s current medications. [If Yes, STOP here]: Yes
--- NOTE | 2024-03-06 06:23 | DI.US.S_ITS ---
PROCEDURE: US ABDOMEN LIMITED INDICATIONS: Elevated LFTs and total bilirubin TECHNIQUE: Real-time scanning was performed of the abdominal and retroperitoneal organs, with image documentation. Color Doppler interrogation was also performed of the main portal vein. COMPARISON: [facility], , US ABDOMEN LIMITED, 02/27/2024, 13:34. FINDINGS: Liver: Liver is normal in size and homogeneous in echotexture. Main portal vein is patent with normal hepatopetal flow. Gallbladder: No gallstones identified. Normal gallbladder wall thickness. No pericholecystic fluid. Negative sonographic Patel sign. Biliary ducts: No intrahepatic biliary ductal dilatation. Extrahepatic bile duct is 6.0 mm in caliber. Normal biliary caliber is 6-7 mm or less, or 10 mm or less post-cholecystectomy. Pancreas: Visualized portions of the pancreas appear normal. Miscellaneous: No free abdominal fluid. IMPRESSION: No cholelithiasis or sonographic evidence of acute cholecystitis. No common bile duct dilatation or sonographic evidence of choledocholithiasis. Approved by: Francheska Husain M.D.,Ph.D. on 03/06/2024 at 9:33
[2024-03-06] MEDS: CIPROFLOXACIN 400 MG/200 ML PIGGYBACK 200 MG IV ×2 (07:19→16:57)
[2024-03-06] MEDS: POTASSIUM CHLORIDE IN WATER 10 MEQ/100 ML PIGGYBACK 100 MEQ IV ×4 (08:15→11:46)
--- NOTE | 2024-03-06 08:25 | PM.HP.1 ---
History of Present Illness History of Present Illness Date Patient Seen: 03/06/24 Chief complaint: fever, had colonoscopy 03/04/24 Narrative: From night doctor: 78 years old male with history of hyperlipidemia, obstructive sleep apnea, constipation, allergic rhinitis, coronary artery disease, morbidly obese presented to the ER with fever of 101.7, weakness, anorexia, malaise, nausea, vomiting and increased confusion 1 day after he had colonoscopy 2 days ago. He also had increased confusion and mild speech deficiency. Denies any other symptoms. Laboratory shows WBC 9.9, potassium 3.3, blood sugar 151, AST 79, ALT is 57, INR 1.3, sodium 134, bili 0.8, total bilirubin 1.4, respiratory viral panel negative. CTA of head and neck was unremarkable. Abdominal CT scan shows colitis at the splenic flexure and extensive diverticulosis. Initially the patient was preliminary diagnosed with TIA/CVA due to confusion. Given fluid boluses and Reglan. Additional info: He had a colonoscopy at [facility] in [place] approximately 2 days ago. He would 2 polyps removed. He began to have some pain, and weakness starting yesterday. Upon arrival he did have a low-grade fever. Imaging was negative for pneumonia but he did have evidence of descending colonic colitis. He also has known diverticulosis. He has had recurrent bouts of diverticulitis. When I saw him at about 11:00 a.m. on the floor after transfer out from the emergency department, he felt much better denied any confusion at that point. His was at the bedside, she does have cognitive impairment. His son was also at the bedside and confirmed that he was at or near his baseline. The patient has a little bit of right lower quadrant abdominal pain. No nausea. He denies recent diarrhea. [facility] Medical History Do not resuscitate BPPV (benign paroxysmal positional vertigo) HSV-1 (herpes simplex virus 1) infection Actinic keratosis Overweight Coronary atherosclerosis Obstructive sleep apnea of adult History of colonic polyps Slow transit constipation 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 Social History marital status: household members: spouse lives independently: Yes occupational status: previously employed Smoking Status: Former smoker alcohol intake: current substance use type: does not use Meds Home Medications and Allergies Home Medications Medication Instructions Recorded Confirmed Type glucos sul [id number]-Mn 1 cap PO DAILY 04/05/22 02/25/24 History [Glucosamine Chondroitin] multivitamin 1 tab PO DAILY 04/05/22 02/25/24 History omega-3 fatty acids 1,000 mg 1,000 mg PO DAILY 04/05/22 02/25/24 History capsule rosuvastatin 10 mg tablet 10 mg PO DAILY #90 tabs 05/07/23 02/25/24 Rx terbinafine HCl 250 mg tablet 250 mg PO DAILY #10 tabs 06/28/23 02/25/24 Rx turmeric 500 mg PO DAILY 06/28/23 02/25/24 History Allergies Allergy/AdvReac Type Severity Reaction Status Date / Time No Known Drug Allergies Allergy Verified 02/25/24 11:23 Review of Systems Review of Systems Narrative: All else reviewed and otherwise unremarkable except as noted in the history and physical. Exam Vital Signs (past 8 hours): - 03/06/24 00:34 03/06/24 00:34 03/06/24 01:00 Temperature Pulse Rate 86 Respiratory Rate Blood Pressure 128/62 119/58 L Pulse Oximetry 96 03/06/24 01:00 03/06/24 01:30 03/06/24 01:30 Temperature Pulse Rate 78 97 H Respiratory Rate 21 19 Blood Pressure 148/68 H Pulse Oximetry 96 97 03/06/24 02:00 03/06/24 02:00 03/06/24 02:30 Temperature Pulse Rate 91 H 88 Respiratory Rate 21 21 Blood Pressure 136/63 Pulse Oximetry 97 96 03/06/24 02:30 03/06/24 03:00 03/06/24 03:00 Temperature Pulse Rate 87 Respiratory Rate 20 Blood Pressure 131/61 122/58 L Pulse Oximetry 95 03/06/24 03:37 03/06/24 03:39 03/06/24 03:39 Temperature Pulse Rate 110 H 104 H Respiratory Rate 26 H 24 Blood Pressure 170/74 H Pulse Oximetry 95 03/06/24 03:47 03/06/24 04:00 03/06/24 04:00 Temperature 101.4 F H Pulse Rate 93 H Respiratory Rate 25 H Blood Pressure 153/65 H Pulse Oximetry 94 03/06/24 04:30 03/06/24 05:00 03/06/24 05:30 Temperature Pulse Rate 86 83 79 Respiratory Rate 24 23 23 Blood Pressure Pulse Oximetry 91 91 03/06/24 05:48 03/06/24 06:01 03/06/24 06:01 Temperature 98.5 F Pulse Rate 81 Respiratory Rate 24 Blood Pressure 100/52 L Pulse Oximetry 93 Oxygen Delivery Method Room Air Narrative Exam Narrative: NAD, alert and oriented, fluent speech, calm. Normocephalic skull, EOMI, anicteric sclera, symmetric pupils. Oropharynx unremarkable, no droop. Neck supple, midline trachea, no adenopathy. Lungs clear, normal rate and effort. Heart regular, no murmur gallop or rub. Abdomen is soft, non distended and non tender (except for mild right lower quadrant tenderness without rebound). Extremities are free of edema. Skin is free of rash or lesions. Joints are not swollen or deformed. Judgment appears to be normal. Mild left facial droop, and he does have some degree of a chronic droop per family. Speech is fairly normal. Negative pronator drift. Objective Labs 03/05/24 20:08 03/06/24 05:25 Labs: Laboratory Results - last 24 hr 03/05/24 03/05/24 03/06/24 20:08 22:41 05:25 WBC 9.9 RBC 4.28 L Hgb 13.9 Hct 39.9 L MCV 93.2 MCH 32.5 MCHC 34.9 RDW 12.9 Plt Count 146 L Neut % (Auto) 91.9 H Lymph % (Auto) 3.0 L [place] % (Auto) 4.6 Eos % (Auto) 0.2 L Baso % (Auto) 0.3 Neut # (Auto) 9100 H Lymph # (Auto) 300 L [place] # (Auto) 500 Eos # (Auto) 0 Baso # (Auto) 0 PT 14.5 H INR 1.3 APTT 35 Sodium 134 L 136 L Potassium 3.3 L 3.1 L Chloride 103 107 Carbon Dioxide 22 22 BUN 12 11 Creatinine 0.88 0.90 Estimated GFR > 60 > 60 BUN/Creatinine Ratio 13.6 12.2 Glucose 151 H 121 H Hemoglobin A1c 5.1 Lactate 0.9 Calcium 9.1 8.5 Total Bilirubin 1.4 H AST 79 H ALT 57 H Alkaline Phosphatase 84 Total Protein 7.5 Albumin 4.6 Globulin 2.9 Albumin/Globulin Ratio 1.6 Triglycerides 52 Cholesterol 71 L LDL Cholesterol, Calc 21 HDL Cholesterol 40 Lipase 59 Procalcitonin 0.21 Chlamy pneumoniae PCR Not detected Adenovirus (PCR) Not detected B.parapertussis DNA PCR Not detected Coronavirus OC43 (PCR) Not detected Coronavirus HKU1 (PCR) Not detected Coronavirus 229E (PCR) Not detected SARS-CoV-2 (PCR) Not detected Coronavirus NL63 (PCR) Not detected Human Metapneumovir PCR Not detected Influenza Type A (PCR) Not detected Influenza Type B (PCR) Not detected M. pneumoniae (PCR) Not detected Parainfluenza 1 (PCR) Not detected Parainfluenza 2 (PCR) Not detected Parainfluenza 3 (PCR) Not detected Parainfluenza 4 (PCR) Not detected RSV (PCR) Not detected Entero/Rhino (PCR) Not detected Assessment & Plan Assessment & Plan narrative: 1. Acute septic encephalopathy, present on admission and improving. 2. Colitis, present on admission and active. 3. Recent colonoscopy (2 days [facility]), present on admission and stable. 4. Hypokalemia, present on admission and active. 5. HLD, present on admission and active. 6. CAD, present on admission and stable. 7. YONATAN, present on admission and active. 8. Acute on chronic left-sided facial droop, present on admission and active. The patient does have a chronic droop without a clear diagnosis of Howell's in the past. MRI of the brain was negative. PLAN: -continue antibiotics for possible colitis. -stool PCR. Rule out C diff colitis. -obtain colonoscopy results. -monitor mental status. -continue IV fluids. Do not resuscitate He is admitted inpatient status, anticipate a 2 midnight need for hospital services. Time Spent With Patient Time with patient: 30 to 49 minutes with 50% spent counseling/coordinating care Quality VTE Deep Vein Thrombosis/Pulmonary Embolism Present on Admission: No MIPS - Admit I confirm the patient?s Advance Care Plan is present, Code status is documented, Surrogate decision maker is in patient?s record [If Yes, STOP here]: Yes MIPS - Meds 'Current medications' to include all prescriptions, [id number] products, herbals, cannabis/cannabidiol products, and vitamin/mineral/dietary (nutritional) supplements. I have utilized all available resources to obtain, update, or review the patient?s current medications. [If Yes, STOP here]: Yes
[2024-03-06] MEDS: ASPIRIN EC 325 MG TABLET PO (09:10)
--- NOTE | 2024-03-06 12:22 | SLP.IPNOTE ---
Addendum entered and electronically signed by Vivian Salazar 03/06/24 12:24: 5. Per MD, liquid diet at this time due to colitis. Solids not assessed this date. Original Note: MARKETING PROGRAM MANAGER swallow recommendations as of 03/06/24: 1. Pt okay for thin liquids as of today's assessment. 2. Ensure pt is upright for intake. 3. Encourage pt to complete oral care regularly. 4. Monitor for changes in cognitive status.
--- NOTE | 2024-03-06 13:43 | ST.IPIE ---
Visit Care Team Role Provider Type Neal Guillory MD Primary Care Provider Physician Specialty: Internal Medicine Address: [address] [place] [address] Email: [email or web address] Santiago MD Emergency Provider Physician Referring Provider Specialty: Emergency Medicine Address: [address] [place] [address] Email: Augustin Sanz MD Admit Provider Physician Attending Provider Specialty: Internal Medicine Address: [address] [place] [address] Fax: Email: [email or web address] Past Medical History (Last Reviewed 03/06/24 @ 08:26 by Paul Marr MD) Actinic keratosis (Medical) BPPV (benign paroxysmal positional vertigo) (Medical) Coronary atherosclerosis (Medical) Do not resuscitate (Medical) History of colonic polyps (Medical) HSV-1 (herpes simplex virus 1) infection (Medical) Mixed hyperlipidemia (Medical) Obstructive sleep apnea of adult (Medical) Overweight (Medical) Primary osteoarthritis involving multiple joints (Medical) Slow transit constipation (Medical) ST IP Initial Evaluation Report PRINTING EQUIPMENT MECHANIC Adult Cognitive Linguistic Eval Start: 03/06/24 12:22 Freq: Status: Active Protocol: Document 03/06/24 13:02 CG (Rec: 03/06/24 13:43 CG [id number]) Adult Cognitive Linguistic Evaluation Session Time Visit Start Time 11:30 Visit Stop Time 11:55 Total Visit Minutes 25 Visit Information Visit Number [address] Ref[address] Sanz Setting Assessment Location Acute Care Visit Type Note Type Initial evaluation Next Note Type Next Note Type Re-Evaluation Patient Information Identification Type Name,Wristband Patient History Per H&P: 78 years old male with history of hyperlipidemia , obstructive sleep apnea, constipation, allergic rhinitis, coronary artery disease, morbidly obese presented to the ER with fever of 101.7, weakness, anorexia, malaise, nausea, vomiting and increased confusion 1 day after he had colonoscopy 2 days ago. He also had increased confusion and mild speech deficiency. Denies any other symptoms. Laboratory shows WBC 9.9, potassium 3.3, blood sugar 151, AST 79, ALT is 57, INR 1.3, sodium 134, bili 0.8, total bilirubin 1.4, respiratory viral panel negative. CTA of head and neck was unremarkable. Abdominal CT scan shows colitis at the splenic flexure and extensive diverticulosis. Initially the patient was preliminary diagnosed with TIA /CVA due to confusion. Given fluid boluses and Reglan. Additional info: He had a colonoscopy at [facility] in [place] approximately 2 days ago. He would 2 polyps removed. He began to have some pain, and weakness starting yesterday. Upon arrival he did have a low- grade fever. Imaging was negative for pneumonia but he did have evidence of descending colonic colitis. He also has known diverticulosis. He has had recurrent bouts of diverticulitis. When I saw him at about 11:00 a.m. on the floor after transfer out from the emergency department, he felt much better denied any confusion at that point. His was at the bedside, she does have cognitive impairment . His son was also at the bedside and confirmed that he was at or near his baseline. The patient has a little bit of right lower quadrant abdominal pain. No nausea. He denies recent diarrhea. Based on patient interview, he denies difficulty with speech despite presenting with mild dysarthria. He states that any present speech difficulties are due to dry mouth. He states no difficulty swallowing liquids, but he does complain that solid foods get stuck in his throat. He has not had an instrumental swallowing assessment in the past. Hearing Hearing Level Impaired Auditory History mildly impaired hearing Subjective Patient Report Pt was seated partially reclined in bed with his and his son, Jv, present in the room for PRINTING EQUIPMENT MECHANIC evaluation . He was awake, alert, and generally oriented though occasionally asking questions that indicated some confusion. He was observed to respond quickly to PRINTING EQUIPMENT MECHANIC questions and comments with the need for occasional clarification, and humor was intact with family and PRINTING EQUIPMENT MECHANIC throughout evaluation. Initially he seemed slightly hesitant to complete PRINTING EQUIPMENT MECHANIC eval until PRINTING EQUIPMENT MECHANIC explained that PRINTING EQUIPMENT MECHANIC eval is standard for patients experiencing neurological symptoms. Very mild left sided facial droop was present , which family states is typical for the patient, though worsened at the moment. Mental Status Alert,Responsive,Cooperative Assessment Oral Motor Examination Completed Yes Informal Assessment Receptive Language Normal No Receptive Language Impairment(s) Comprehension of conversation Expressive Language Normal Yes Pragmatic Language Normal No Pragmatic Language Impairment(s) Poor eye contact Speech Normal No Speech Impairment(s) Imprecise articulation, Decreased volume/intensity Cognition Normal No Cognitive Impairment(s) Short-term memory,Executive functioning,Problem solving, Thought organization Formal Assessment Standardized Test/Screener Type [facility] Mental Status ([facility]) Administration Complete Results Pt scored a 23/30, indicative of Mild Neurocognitive Disorder based on the authors of the SLUMS. Pt had difficulties with math calculation (he stated 100-23 = 73), which his son Jv noted was atypical for him. Additionally, he had difficulty with number reversal of 4 digits and difficulty with setting the correct time on a clock drawing when asked to set the time to 10:50 (he marlin only one clock hand, which pointed to the 9). For short term recall, he remembered 3 of 5 items from a list after a delay. PRINTING EQUIPMENT MECHANIC discussed results with the pt and family, describing areas of strength and difficulty for the pt. Discussed the importance of functional implications for cognitive skills as related to safety with independent living. Findings/Results Language Function Mildly impaired Cognitive Function Mild-moderately impaired Findings Pt presents with mild cognitive-linguistic deficits most significantly characterized by difficulty with problem solving/working memory and thought organization. Though he is oriented to place, time, person, and situation, she demonstrates mild confusion and lack of insight regarding his condition. For example, he did not recall having speech difficulties in ED and also was confused as to why he could not have solid food yet though nurse stated that MD had already discussed with the pt that he has colitis. He appeared to have some mild difficulty following PRINTING EQUIPMENT MECHANIC conversation and understanding some instructions and situational needs. For example , his phone started ringing in the middle of the evaluation and he was at first unaware that it was his phone, then unable to find it, and then unable to figure out how to turn off the ringer. Deficits are mild but likely have a functional impact on IADLs. Based on current presentation, would not recommend the pt complete his finances independently, nor manage medications independently unless cognitive status improves with overall medical status. Recommend following up with neuro consult on outpatient basis. Additionally recommend home health ST cognitive assessment . Cognitive Communication Deficits Self-awareness of Cognitive- Limited awareness (minimal Communication Deficits appreciation without specificity) Impact on Functioning Activity Limits/Particip.Rest. Mild: Interpersonal Interactions Community Safety Risks Mod: Being Left Alone at Home Managing Medication Traveling Alone in Community Prognosis Prognosis Fair Based on Cognitive status Plan of Care Speech-Language Treatment No Patient/Caregiver Education Described results of evaluation,Patient expressed understanding of evaluation, Family/caregivers expressed understanding of evaluation Discharge Recommendations Home with Home Health PRINTING EQUIPMENT MECHANIC Clinical Swallow Evaluation Start: 03/06/24 12:22 Freq: Status: Active Protocol: Document 03/06/24 13:02 CG (Rec: 03/06/24 13:43 CG [id number]) Clinical Swallow Evaluation Session Time Visit Start Time 11:55 Visit Stop Time 12:10 Total Visit Minutes 15 Reported by Patient/Caregiver Other Symptoms Difficulty swallowing solids Comment Pt c/o solid foods feeling stuck near the top of [his] throat Current Diet Liquidised (IDDSI 3) Baseline Feeding Method Independent in self-feeding The IDDSI Framework Protocol: IDDSI.1 Objective Assessment Mental Status Alert,Responsive,Cooperative Oral Integrity Excessive saliva/Drooling, Xerostomia/Dry mouth Dentition Decay Lip Function Within normal limits Observation of Lips at Rest Left sided weakness/Drooping Tongue Function Mild impairment Observations of Tongue at Rest Deviates to the left, Involuntary movement(s) Tongue Protrusion Deviates to the left,Reduced strength Tongue Lateralization Incoordination Jaw Function Within normal limits Hard/Soft Palate Function Mild impairment Nasality Within normal limits Respiratory Sufficiency Within normal limits Comment OME was significant for the following: -dentition mostly present, one dental implant, some decay observed -Oral status is mildly decreased with diffuse plaque. Pt stated he had not brushed teeth since yesterday morning. -Pt c/o dry mouth -Mild tongue deviation to the L upon protrusion -Mild involuntary tongue movements upon protrusion and when instructed to hold tongue still within the oral cavity. -Mild palatal weakness with /k / phoneme -Pt's voice appeared WFL, but pt and family state it has become quieter than it used to be Food and Liquid Trials Position During Assessment Upright (90 degrees) Liquids Trialed Thin (IDDSI 0) Administration Type Cup consecutive sips,Straw, Self-feeding Oral Impairment Within functional limits Oral Phase Comments Mild L sided anterior bolus loss, which pt and family stated was typical for pt. Bolus hold, A-P lingual transit, and pharyngeal swallow intiation all appeared WFL. . It should be noted that only thin liquids were trialed. Unable to trial solids due to pt on full liquid diet 2/ colitis Pharyngeal Impairment Within functional limits Pharyngeal Phase Comments No overt s/sx aspiration/ penetration, though silent aspiration cannot be ruled out without an instrumental assessment. It should be noted that only thin liquids were trialed. WFL. Unable to trial solids due to pt on full liquid diet 2/ colitis. Pt does complain of solid foods sticking, possibly indicative of pharyngeal dysphagia with solids. The IDDSI Framework Protocol: IDDSI.1 Findings Swallowing Function Within functional limits Swallowing Function Comments WFL with liquids, but solids still need assessment Severity of Swallow Impairment Within functional limits Prognosis Good Impact on Safety and Functioning No limitations Recommendations Instrumental Assessment No Swallowing Treatment No Other Recommendations Re-assess with solids when appropriate Safety Precautions/Swallowing 1 to 1 distant supervision, Recommendations Remain upright (90 degrees) during all oral intake Medication Recommendations As Tolerated Referrals Recommended Referrals Neurology Education Patient/Caregiver Education Described results of evaluation,Patient expressed understanding of evaluation Goals Short-term Goals 1. Pt will complete PO assessment of solid foods with PRINTING EQUIPMENT MECHANIC (when medically able) in order to determine safest least restrictive diet.
--- NOTE | 2024-03-06 15:27 | OT.IP.EVAL ---
Current Diagnoses Transient cerebral ischemic attack, unspecified (03/06/24) Past Medical History (Last Reviewed 03/06/24 @ 08:26 by Paul Marr MD) Actinic keratosis BPPV (benign paroxysmal positional vertigo) Coronary atherosclerosis Do not resuscitate History of colonic polyps HSV-1 (herpes simplex virus 1) infection Mixed hyperlipidemia Obstructive sleep apnea of adult Overweight Primary osteoarthritis involving multiple joints Slow transit constipation Occupational Therapy Inpatient Evaluation/Re-Eval M1 PT/OT-IP Prior Functional Status Start: 03/06/24 12:32 Freq: NEEDED Status: Active Protocol: Document 03/06/24 17:28 [facility] (Rec: 03/06/24 17:48 [facility] [id number]) Medical Review Prior Functional Status Medical History Reviewed Yes Diet/Fluid Consistency Regular Communication mild hard of hearing Mobility and Gait Independent without device, he drives Activities of Daily Living and IADL's Independent Prior Functional Level (Other details) recent decline at home with Son's needing to help His has cognitive impairments Social History Household Members spouse Living Arrangements House Number of Floors (Floors) Two Floors Number of Stairs To Enter/Railing? 2 in garage without rail, 4 at front door with rail, 12 steps to bedroom with rails Employment Status Retired M2 OT-IP Current Condition Start: 03/06/24 12:32 Freq: Status: Active Protocol: Document 03/06/24 15:27 [facility] (Rec: 03/07/24 08:28 [facility] [id number]) Occupational Therapy Current Condition Current Condition Evaluation Date 03/06/24 Treatment Diagnosis Colitis, acute septic encephalopathy, fever Diagnosis Onset Date 03/06/24 M3 OT- IP Subjective and Pain Start: 03/06/24 12:32 Freq: Status: Active Protocol: Document 03/06/24 15:27 [facility] (Rec: 03/07/24 08:28 [facility] [id number]) OT- Subjective Occupational Therapy Visit Type Type Initial Evaluation Visit Start Time 15:27 Visit Stop Time 16:14 Occupational Therapy Visit Comments Patient Comments Pt wanting to use the bathroom and agreed to do cognitive assessments. Patient/Caregiver Goals To go home. OT Pain Assessment Pain When Pain Assessed At Rest Pain Present Pain Present Denied Pain M4 OT- IP ADL's Start: 03/06/24 12:32 Freq: Status: Active Protocol: Document 03/06/24 15:27 [facility] (Rec: 03/07/24 08:28 [facility] [id number]) OT [id number]-[id number] General Evaluation Self-Feeding Ability Independent OT ADL-Grooming General Evaluation Grooming Ability Standby Assistance Comments OT Grooming Comments VC to point out items on the sink. OT ADL-Oral Care General Eval Oral Care Ability Independent Comments Oral Care Comments vc to think of a different way to open the package on the toothbrush OT ADL-Dressing General Eval Lower Body Dressing Ability Standby Assistance Comments OT Dressing Comments VC to sit to get dressed for safety. Pt able to bend forwards and kourtney/doff his socks with increased time. OT ADL-Toileting General Evaluation Toileting Ability Standby Assistance Comments OT Toileting Comments VC for completeness to wipe. OT ADL-Bathing Comments OT Bathing Comments Not performed. Pt will benefit from shower chair as unsteady on his feet. M5 OT- IP IADL's Start: 03/06/24 12:32 Freq: Status: Active Protocol: Document 03/06/24 15:27 [facility] (Rec: 03/07/24 08:28 [facility] [id number]) OT-Instrumental Activities of Daily Living Deficits IADL Deficits Identified Deficits Home Safety Awareness Awareness of Need for Assistance at Home Decreased Awareness Ability to Problem Solve Emergency Able to Problem Solve Situations Home Safety Comments Pt will benefit from supervision from his son for safety awareness. Medication Management Medication Management Comments Pt would benefit from supervision. Money Management Money Management Comments Pt will benefit from supervision. Meal Preparation Meal Preparation Comments Pt will benefit from at least supervision. Skills Instructor Skills Instructor Comments Pt will benefit from assist due to decreased safety awareness. Driving Driving Concerns Identified Regarding Safety M6 OT- IP Functional Cognition Start: 03/06/24 12:32 Freq: Status: Active Protocol: Document 03/06/24 15:27 [facility] (Rec: 03/07/24 08:28 [facility] [id number]) Cognitive Factors Limiting Selfcare Function Cognitive Ability Level of Alertness Alert Patient Orientation Name,Age,Birthday,Month,Date, Year,Day of Week,Place, Situation Attention Span Ability Capable of Focused Attention, Capable of Sustained Attention Ability to Follow Commands Able to Follow One Step Commands with Increased Time, Able to Follow One Step Commands with Repetition Memory Description Short Term Impaired,Working Impaired Safety Awareness Underestimates Need for Assistance Problem Solving Ability Needs Assist to Identify Solutions Executive Function Ability Unable to Filter Distractions, Unable to Remember Details Cognitive Tests SLUMS Pt scored 23/30 on the SLUMS per WEB DATABASE DEVELOPER. Cognitive Comments Cognitive Assessment Comments Pt not able to find the soap dispenser to the left on the sink and then pointed to it but still did not realize it was the soap to use and having to point out to the label so pt able to finally realize it was the soap to use. Pt needing to be reminded couple of times not to throw out the wet wipes in the toilet. Pt slow to respond to questions at time and seemingly just joking around to cover to possible cognitive deficits. Pt scored 171 on [place] Making Part B which is below 30% for his age and implies severe deficits for visual attention, speed of processing, executive functioning, mental flexibility, and task switching. Pt did have a fever and colitis which may be affecting his thinking -pt's son states his dad is definitely not thinking well. Pt's son aware that best for him not to drive at this time. Pt having difficulty to read and decipher a 3 variable chart when figuring out what percentage for his age group for his score on the 9 hole Peg test. OT- Vision and Hearing OT- Hearing Assessment OT- Hearing Assessment WFL OT- Vision Assessment Visual Acuity Glasses All The Time Visual Attentiveness WFL Occular Pursuits WFL Visual [place] WFL Diplopia Absent M7 OT- IP Mobility and Balance Start: 03/06/24 12:32 Freq: Status: Active Protocol: Document 03/06/24 15:27 [facility] (Rec: 03/07/24 08:28 [facility] [id number]) OT- Bed Mobility Assessment Supine to Sit Supine to Sit Assist Standby Assistance Sit to Supine Sit to Supine Assist Standby Assistance Scooting Scooting to Edge of Bed Standby Assistance OT-Transfer Assessment Sit to and From Stand Sit to and from Stand Standby Assistance Transfers Transfer Ability Standby Assistance,Contact Guard Assistance Technique Transfer Destination Bed,Chair,Toilet Transfer Technique Stand Step Pivot Devices Transfer Assistive Devices None,Gait Belt Comments Mobility Comments Increased time to get to the edge of the bed. CLose SBA to stand and able to walk to the bathroom with wider base of support. Pt at times use of surfaces to touch for balance and improved as the session sent on. OT- Balance Assessment Sitting Balance and Reactions Static Sitting Balance Ability Normal Dynamic Sitting Balance Ability Good Standing Balance and Reactions Static Standing Balance Ability Good Dynamic Standing Balance Ability Fair Comments Other Balance Tests/Deviations/Treatment Pt able to stand on his right : foot for 3 seconds and left foot 2 seconds. M8 OT- IP Objective Assessments Start: 03/06/24 12:32 Freq: Status: Active Protocol: Document 03/06/24 15:27 [facility] (Rec: 03/07/24 08:28 [facility] [id number]) OT Gross Range of Motion Upper Extremity Range of Motion Assessment Within Functional Limits OT Strength Upper Extremity Strength Assessment Within Functional Limits OT- Coordination Assessment Comments Coordination Comments Pt scored 28 sec. for right hand approx 50% for his age and 35 sec for left hand at 10 % for his age. OT Sensation Assessment Comments Summary Comments Intact for light touch and diadochokinesis. M9 OT- IP Assessment and Plan Start: 03/06/24 12:32 Freq: Status: Active Protocol: Document 03/06/24 15:27 [facility] (Rec: 03/07/24 08:28 [facility] [id number]) OT Summary Assessment and Plan Potential Rehabilitation Potential Good Analytic Complexity at Evaluation Low Summary OT Impairments Balance,Coordination, Functional Cognition, Functional Mobility,Dressing, Toileting,Bathing,Toilet Transfers,Shower Transfers Progress Towards Goals Slow Progress due to Medical Issues,Slow Progress due to Cognition Assessment Summary Pt MOD complexity and main barriers are decreased dynamic balance, executive functioning , memory, fms, and will benefit from at least supervision for safety awareness and for IADL needs. Pt's son aware that his dad is not at his baseline and states will stay with his dad, as his mom has cognitive deficits. Goals Grooming Goal Independent Dressing Goal Independent Toileting Goal Independent Bathing Goal Independent Toilet Transfer Goal Independent Shower Transfer Goal Independent Days to Meet Goals 5 Frequency of Treatment Frequency Of Treatment Once a Day Treatment Plan OT Treatment Plan ADL Training,Functional Cognition Training,Functional Mobility,Patient/Family Education,Discharge Planning Discharge Recommendations OT Discharge Recommendations Home with 14/05 Assist Available Home Equipment Needs shower chair Transportation Needs at Discharge Private Vehicle
--- NOTE | 2024-03-06 17:27 | PT.IIE ---
Current Diagnoses Transient cerebral ischemic attack, unspecified (03/06/24) Medical History (Last Reviewed 03/06/24 @ 08:26 by Paul Marr MD) Actinic keratosis BPPV (benign paroxysmal positional vertigo) Coronary atherosclerosis Do not resuscitate History of colonic polyps HSV-1 (herpes simplex virus 1) infection Mixed hyperlipidemia Obstructive sleep apnea of adult Overweight Primary osteoarthritis involving multiple joints Slow transit constipation Physical Therapy Inpatient Evaluation/Re-Eval M1 PT/OT-IP Prior Functional Status Start: 03/06/24 12:32 Freq: NEEDED Status: Active Protocol: Document 03/06/24 17:28 [facility] (Rec: 03/06/24 17:48 [facility] [id number]) Medical Review Prior Functional Status Medical History Reviewed Yes Diet/Fluid Consistency Regular Communication mild hard of hearing Mobility and Gait Independent without device, he drives Activities of Daily Living and IADL's Independent Prior Functional Level (Other details) recent decline at home with Son's needing to help His has cognitive impairments Social History Household Members spouse Living Arrangements House Number of Floors (Floors) Two Floors Number of Stairs To Enter/Railing? 2 in garage without rail, 4 at front door with rail, 12 steps to bedroom with rails Employment Status Retired M2 PT-IP Current Condition Start: 03/06/24 12:32 Freq: NEEDED Status: Active Protocol: Document 03/06/24 17:28 [facility] (Rec: 03/06/24 17:48 [facility] [id number]) Physical Therapy Current Condition Current Condition Evaluation Date 03/06/24 Treatment Diagnosis confusion, weakness, fever, colitis Onset Date 03/06/24 M3 PT-IP Subjective Start: 03/06/24 12:32 Freq: NEEDED Status: Active Protocol: Document 03/06/24 17:28 [facility] (Rec: 03/06/24 17:48 [facility] [id number]) Subjective Physical Therapy Visit Type Type Initial Evaluation Visit Start Time 17:05 Visit Stop Time 17:27 Notes 23 minutes Number of GOVERNMENT SERVICES PROFESSIONAL Visits 0 Physical Therapy Visit Comments Patient Comments He reports feeling better. He reports he has not been sleeping well. He feels tired today. Patient Goals Discharge home Therapy Pain Assessment Pain When Pain Assessed During Mobility Pain Present Pain Present Denied Pain M4 PT-IP Mobility and Gait Start: 03/06/24 12:32 Freq: NEEDED Status: Active Protocol: Document 03/06/24 17:28 [facility] (Rec: 03/06/24 17:48 [facility] [id number]) PT-Transfer Assessment Sit to and From Stand Sit to and from Stand Independent,Use of Upper Extremities Equipment Transfer Assistive Device Gait Belt Transfers Transfer Destination Chair Transfer Technique Stand Step Pivot Transfer Ability Level of Assist Independent,Use of Upper Extremities Comments Mobility Comments He demonstrated no losses of balance, He needs UE assist for safe sit to stand but he does this effectively. Pt up to recliner and stayed up for dinner. Gait Assessment Gait Gait Assistance Required: Standby Assistance Distance (Feet) 220 Assistive Devices Assistive Device Gait Belt Factors Limiting Gait Function Factors Limiting Gait Function Decreased Activity Tolerance Comments Gait Comments he demonstrates mild, intermittent stability in stance on right LE but without loss of balance Stair Climbing Assessment Evaluation Level of Assist On Stairs Standby Assistance Devices Stair Climbing Assistive Devices Left Railing Technique/Endurance Stair Climbing Direction Ascend and Descend Stair Climbing Technique Step Over Step Number of Steps Climbed 3 Query Text: Stair Climbing Set # Repetitions (reps) 2 PT-Balance Assessment Sitting Balance and Reactions Static Sitting Balance Ability Normal Dynamic Sitting Balance Ability Normal Standing Balance and Reactions Static Standing Balance Ability Good Dynamic Standing Balance Ability Good Device Used none M5 PT-IP Objective Assessments Start: 03/06/24 12:32 Freq: NEEDED Status: Active Protocol: Document 03/06/24 17:28 [facility] (Rec: 03/06/24 17:48 [facility] [id number]) Orientation Orientation/Cognition Level of Alertness Alert Orientation Name,Age,Birthday,Month,Date, Year,Day of Week,Place, Situation Language Function Ability Hard of Hearing Safety Awareness Understands Safety Issues Memory Description Short Term Impaired Comments he is cooperative and pleasant Gross Range of Motion Upper Extremity ROM Assessment Within Functional Limits Lower Extremity ROM Assessment Within Functional Limits Strength Upper Extremity Strength Assessment Within Functional Limits Lower Extremity Strength Assessment Right Impaired Hip flex 4+/5, abduction 4-/5 Coordination Assessment Gross Coordination Gross Coordination WNL Sensation Assessment Sensation Gross Sensation WNL Muscle Tone Muscle Tone WNL Yes M6 PT-IP Treatment Start: 03/06/24 12:32 Freq: NEEDED Status: Active Protocol: Document 03/06/24 17:28 [facility] (Rec: 03/06/24 17:48 [facility] [id number]) Physical Therapy Treatment Education Education Provided Safety Other Treatments Other Treatment Performed His Son and are present for therapy M7 PT-IP Assessment and Plan Start: 03/06/24 12:32 Freq: NEEDED Status: Active Protocol: Document 03/06/24 17:28 [facility] (Rec: 03/06/24 17:48 [facility] [id number]) PT Summary Assessment and Plan Potential Rehabilitation Potential Good Status of Condition at Evaluation Evolving Summary Impairments Activity Tolerance Progress Towards Goals Safe For Discharge Assessment Summary Cl is up in the recliner after getting up with Occupational Therapy today. Pt reports he is feeling better. He was able to ambulate in the thakur without a device. No loss of balance observed. He has a mild intermittent trendelenburg on right hip that did not cause a loss of balance. Clinical testing shows mild weakness in right hip compared to left. Pt is unclear if this is new. Pt left up in recliner for dinner . His family is present and is supportive. Pt does not need skilled Physical Therapy at this time. Recommend he ambulate daily in the halls during this admission with family and/or staff. Due to his cognitive impairments identified by Speech and Occupational therapy recommend he have stand by assist for all mobility/gait to decrease his fall risks while he is in an unfamiliar environment. Recommend home with assistance due to his cognitive impairments. Will defer further recommendations to Occupational and Speech therapy. Frequency of Treatment Frequency Of Treatment Discharge Precautions Other Precautions fall risk due to decreased memory Recommendations To Nursing Amount of Assist Needed Standby Assistance Discharge Recommendations PT Discharge Recommendations Home with 24/7 Assist Available Other Discharge Recommendations due to cognitive impairments per OT and ST Transportation Needs at Discharge Private Vehicle
[2024-03-06] MEDS: PRAVASTATIN 20 MG TABLET 40 MG PO (20:17)
[2024-03-07] MEDS: CIPROFLOXACIN 400 MG/200 ML PIGGYBACK 200 MG IV (04:18)
[2024-03-07] MEDS: metroNIDAZOLE 500 MG/100 ML PIGGYBACK 100 MG IV (05:18)
[2024-03-07 06:36] LABS: HBsAg Screen Negative (Negative); Hepatitis A Antibody IgM Negative (Negative); Hepatitis B Core Antibody IgM Negative (Negative); Hepatitis C Antibody Non Reactive (Non Reactive)
[2024-03-07 08:00] VITALS: BP 100/64; PULSE 89; RESP 18; TEMP 36.6; O2SAT 100
[2024-03-07] MEDS: ASPIRIN EC 325 MG TABLET PO (08:29)
--- NOTE | 2024-03-07 09:25 | OT.IP.TRT ---
Current Diagnoses Transient cerebral ischemic attack, unspecified (03/06/24) Occupational Therapy Treatment Note M2 OT-IP Current Condition Start: 03/06/24 12:32 Freq: Status: Active Protocol: Document 03/06/24 15:27 [facility] (Rec: 03/07/24 08:28 [facility] [id number]) Occupational Therapy Current Condition Current Condition Evaluation Date 03/06/24 Treatment Diagnosis Colitis, acute septic encephalopathy, fever Diagnosis Onset Date 03/06/24 M3 OT- IP Subjective and Pain Start: 03/06/24 12:32 Freq: Status: Active Protocol: Document 03/07/24 09:49 [facility] (Rec: 03/07/24 09:59 [facility] [id number]) OT- Subjective Occupational Therapy Visit Type Type Treatment Note Visit Start Time 09:25 Visit Stop Time 09:48 Occupational Therapy Visit Comments Patient Comments Pt agreed to do cognitive assessment again today. Patient/Caregiver Goals TO go home. OT Pain Assessment Pain When Pain Assessed At Rest Pain Present Pain Present Denied Pain M4 OT- IP ADL's Start: 03/06/24 12:32 Freq: Status: Active Protocol: Document 03/06/24 15:27 [facility] (Rec: 03/07/24 08:28 [facility] [id number]) OT TZE-Biba-Eunwebt General Evaluation Self-Feeding Ability Independent OT ADL-Grooming General Evaluation Grooming Ability Standby Assistance Comments OT Grooming Comments VC to point out items on the sink. OT ADL-Oral Care General Eval Oral Care Ability Independent Comments Oral Care Comments vc to think of different way to open the package on the toothbrush OT ADL-Dressing General Eval Lower Body Dressing Ability Standby Assistance Comments OT Dressing Comments VC to sit to get dressed for safety. Pt able to bend forwards and kourtney/doff his socks with increased time. OT ADL-Toileting General Evaluation Toileting Ability Standby Assistance Comments OT Toileting Comments VC for completeness to wipe. OT ADL-Bathing Comments OT Bathing Comments Not performed. Pt will benefit from shower chair as unsteady on his feet. M5 OT- IP IADL's Start: 03/06/24 12:32 Freq: Status: Active Protocol: Document 03/06/24 15:27 [facility] (Rec: 03/07/24 08:28 [facility] [id number]) OT-Instrumental Activities of Daily Living Deficits IADL Deficits Identified Deficits Home Safety Awareness Awareness of Need for Assistance at Home Decreased Awareness Ability to Problem Solve Emergency Able to Problem Solve Situations Home Safety Comments Pt will benefit from supervision from his son for safety awareness. Medication Management Medication Management Comments Pt would benefit from supervision. Money Management Money Management Comments Pt will benefit from supervision. Meal Preparation Meal Preparation Comments Pt will benefit from at least supervision. Floor Molder Floor Molder Comments Pt will benefit from supervision Driving Driving Concerns Identified Regarding Safety M6 OT- IP Functional Cognition Start: 03/06/24 12:32 Freq: Status: Active Protocol: Document 03/07/24 09:49 [facility] (Rec: 03/07/24 09:59 [facility] [id number]) Cognitive Factors Limiting Selfcare Function Cognitive Ability Level of Alertness Alert Patient Orientation Name,Age,Birthday,Month,Date, Year,Day of Week,Place, Situation Attention Span Ability Capable of Focused Attention, Capable of Sustained Attention Ability to Follow Commands Able to Follow Multi-Step Commands Cognitive Comments Cognitive Assessment Comments Pt doing much better today to sequence for ADL needs. Pt scored 117 second on Plummer MAking Part B which implies now mild to moderate impairments for task switching, speed of processing, executive functioning, and mental flexibility. Pt score now at 50% for his age. Pt now has more safety awareness and insist of not to drive especially if not feeling well . M7 OT- IP Mobility and Balance Start: 03/06/24 12:32 Freq: Status: Active Protocol: Document 03/07/24 09:49 [facility] (Rec: 03/07/24 09:59 [facility] [id number]) OT- Bed Mobility Assessment Supine to Sit Supine to Sit Assist Independent OT-Transfer Assessment Sit to and From Stand Sit to and from Stand Independent Transfers Transfer Ability Independent Comments Mobility Comments Pt able to get out of bed better and independent in the room. OT- Balance Assessment Sitting Balance and Reactions Static Sitting Balance Ability Normal Dynamic Sitting Balance Ability Normal Standing Balance and Reactions Static Standing Balance Ability Normal Dynamic Standing Balance Ability Good OT Sensation Assessment Comments Summary Comments Intact for light touch and diadochokinesis. M9 OT- IP Assessment and Plan Start: 03/06/24 12:32 Freq: Status: Active Protocol: Document 03/07/24 09:49 [facility] (Rec: 03/07/24 09:59 [facility] [id number]) OT Summary Assessment and Plan Potential Rehabilitation Potential Good Analytic Complexity at Evaluation Low Summary OT Impairments Balance,Functional Mobility, Bathing,Activity Tolerance Progress Towards Goals Progressing Toward Goals Assessment Summary Pt doing better today with mobility and doing his ADL need. Pt scored much better on Plummer Making Part B and now 50% for his age. Pt's son aware pt still not at his baseline and will be staying with his parents to provide supervision. Goals Bathing Goal Independent Shower Transfer Goal Independent Days to Meet Goals 2 Frequency of Treatment Frequency Of Treatment Once a Day Treatment Plan OT Treatment Plan ADL Training,Functional Cognition Training,Functional Mobility,Patient/Family Education,Discharge Planning Discharge Recommendations OT Discharge Recommendations Home with 24 Assist Available Home Equipment Needs shower chair Transportation Needs at Discharge Private Vehicle
[2024-03-07 10:10] VITALS: O2SAT 98
--- NOTE | 2024-03-07 10:53 | PM.DS.1 ---
History of Present Illness History of Present Illness Date Patient Seen: 03/07/24 Time Patient Seen: 10:40 Chief complaint: fever, had colonoscopy 03/04/24 Narrative: From night doctor: 78 years old male with history of hyperlipidemia, obstructive sleep apnea, constipation, allergic rhinitis, coronary artery disease, morbidly obese presented to the ER with fever of 101.7, weakness, anorexia, malaise, nausea, vomiting and increased confusion 1 day after he had colonoscopy 2 days ago. He also had increased confusion and mild speech deficiency. Denies any other symptoms. Laboratory shows WBC 9.9, potassium 3.3, blood sugar 151, AST 79, ALT is 57, INR 1.3, sodium 134, bili 0.8, total bilirubin 1.4, respiratory viral panel negative. CTA of head and neck was unremarkable. Abdominal CT scan shows colitis at the splenic flexure and extensive diverticulosis. Initially the patient was preliminary diagnosed with TIA/CVA due to confusion. Given fluid boluses and Reglan. Additional info: He had a colonoscopy at [facility] in [place] approximately 2 days ago. He would 2 polyps removed. He began to have some pain, and weakness starting yesterday. Upon arrival he did have a low-grade fever. Imaging was negative for pneumonia but he did have evidence of descending colonic colitis. He also has known diverticulosis. He has had recurrent bouts of diverticulitis. When I saw him at about 11:00 a.m. on the floor after transfer out from the emergency department, he felt much better denied any confusion at that point. His was at the bedside, she does have cognitive impairment. His son was also at the bedside and confirmed that he was at or near his baseline. The patient has a little bit of right lower quadrant abdominal pain. No nausea. He denies recent diarrhea. Discharge Providers Provider Date of admission: 03/06/24 01:47 Discharge Date: 03/07/24 Primary care physician: Neal Guillory MD Consults: 03/06/24 01:59 Consult to Occupational Therapy Evaluate & Treat Comment: Physician Instructions: Evaluate and treat Consult to Physical Therapy Evaluate & Treat Comment: Physician Instructions: Evaluate and Treat Consult to Speech Therapy Evaluate & Treat Comment: Physician Instructions: Evaluate and treat Discharge provider: Josh Tellez DO Summary Hospital Course Discharge Diagnosis: 1. Sepsis with acute metabolic encephalopathy, thrombocytopenia, and hyperbilirubinemia. present on admission and improving secondary to #2 2. Colitis, present on admission and active. 3. Recent colonoscopy (2 days NEUROLOGICAL PHYSIOTHERAPIST), present on admission and stable. 4. Hypokalemia, present on admission and active. 5. HLD, present on admission and active. 6. CAD, present on admission and stable. 7. YONATAN, present on admission and active. 8. Acute on chronic left-sided facial droop, present on admission and active. The patient does have a chronic droop without a clear diagnosis of Howell's in the past. MRI of the brain was negative. Hospital Course: This is an 78 year old male who presented with slurred speech and worsening of facial droop (hx of Howell's palsy) but also diarrhea and abdominal pain. There was concern for possible TIA but more likely patient was more likely septic. He was noted to have colitis on abdominal imaging. Diarrhea improved rapidly with antibiotics given (cipro and flagyl). He had rapid improvement of facial droop and slurrred speech as well. Stool sample for C. diff was unable to be obtained due to lack of a sample. He had improved much more quickly than expected the day after admission, and was tolerating a diet with return to his usual self. Cipro and flagyl was prescribed on discharge for 10 days. No other medication changes are recommended on discharge. Time Spent with Patient Time spent: Greater than 30 minutes Exam Vital Signs (past 8 hours): - 03/07/24 08:00 03/07/24 10:10 Temperature 97.9 F Pulse Rate 89 Respiratory Rate 18 Blood Pressure 100/64 Pulse Oximetry 100 98 Oxygen Delivery Method Room Air Oxygen Delivery Method Room Air Narrative Exam Narrative: NAD, alert and oriented, fluent speech, calm. Lungs clear, normal rate and effort. Heart regular, no murmur gallop or rub. Abdomen is soft, non distended, non-tender Extremities are free of edema. Objective Labs 03/05/24 20:08 03/07/24 08:27 Labs: Laboratory Results - last 24 hr 03/06/24 03:25 Hepatitis A IgM Ab Negative Hep Bs Antigen Negative Hep B Core IgM Ab Negative Hepatitis C Antibody Non reactive Hep C Ab Signal/Cutoff Comment [facility], [facility] Medical History Do not resuscitate BPPV (benign paroxysmal positional vertigo) HSV-1 (herpes simplex virus 1) infection Actinic keratosis Overweight Coronary atherosclerosis Obstructive sleep apnea of adult History of colonic polyps Slow transit constipation 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 Social History marital status: household members: spouse lives independently: Yes occupational status: previously employed Smoking Status: Former smoker alcohol intake: current substance use type: does not use Discharge Plan Discharge Plan Patient Disposition: Home Provider Discharge Comment: You were admitted to the hospital with colitis, or inflammation in your colon. Probably related to infection given improvement with antibiotics. Continue cipro/flagyl at home. I suspect the speech difficulty was more likely related to infection, rather than TIA/stroke at this time. Further discussion with Dr. Guillory can be continued in the near future to talk / at your next planned follow up to discuss resuming baby aspirin therapy after resolution of diverticulitis. Discharge orders & Medications Prescriptions: New ciprofloxacin HCl 500 mg tablet 500 mg PO BID 10 Days Qty: 20 0RF metronidazole 500 mg tablet 500 mg PO Q8H 10 Days Qty: 30 0RF Continued rosuvastatin 10 mg tablet 10 mg PO DAILY Qty: 90 3RF turmeric 500 mg PO DAILY multivitamin Tablet 1 tab PO DAILY glucos sul [id number] [Glucosamine Chondroitin] 1 cap PO DAILY omega-3 fatty acids 1,000 mg capsule 1,000 mg PO DAILY Follow up/Referrals: Neal Guillory MD [Primary Care Provider] - Diet/Activity/Treatments Diet: Diet as Tolerated and Regular Diet comment: No restrictions Activity: No restrictions. Skin/Wound/Dressing Care Report to your healthcare provider any signs of infection, such as:: chills, fever and increased pain Visit Report/Discharge Packet Instructions: DI for Colitis Stand Alone Forms: Patient Portal/API, Stroke Signs & Symptoms Discharge Data Primary Care Provider: Neal Guillory V Quality VTE Deep Vein Thrombosis/Pulmonary Embolism Present on Admission: No
--- NOTE | 2024-03-07 12:10 | SLP.IPNOTE ---
WILD LIFE MANAGER briefly communicated with patient and his family who were present at bedside d/t Pt getting ready to be discharged this date. Pt reports history of swallowing difficulties, however reports he started eating solid foods this morning with no difficulties. ST communicated recommendation for pt to talk with his PCP in regards to a MBS and outpatient/in home speech therapy services. Pt and Pt family verbalized understanding.
--- NOTE | 2024-03-07 12:14 | PC.NURSE ---
Day shift: Pt's cognition improved - A&Ox4, calling appropriately. Discharge instructions gone over by LORI Coles with patient and patient's son. PIV removed prior to discharge. Pt reported diarrhea x 1 this AM, MD Tellez aware. All belongings with patient. Pt escorted via wheelchair to exit where family plans to drive him home.
[2024-03-07 14:00] LABS: BUN Creatinine Ratio 16.2 (6-22); Blood Urea Nitrogen 16 mg/dL (9-20); Calcium 8.3 mg/dL (8.4-10.2); Carbon Dioxide 21 mmol/L (22-32); Chloride 107 mmol/L (98-107); Estimated Glomerular Filt Rate > 60 mL/min (>60); Glucose 108 mg/dL (80-110); HEMOLYSIS 17 (0-50); Potassium 3.5 mmol/L (3.4-5.1); Sodium 136 mmol/L (137-145)
--- NOTE | 2024-03-07 15:29 | CM.DANOTE ---
Discharge Planning/Care Management CM Discharge Assessment Start: 03/07/24 15:26 Freq: Status: Discharge Protocol: Document 03/07/24 15:27 ROBYN (Rec: 03/07/24 15:29 ROBYN [id number]) Discharge Planning Assessment Assigned Internet Manager NAKIA Lee DPOA/Assigned Designee Name Jv Otto, son ([facility]) Contact Information [phone] Advance Directives? Yes: yes/POLST Advance Directives on File Yes History Provided By Patient,Family Member, Significant Other,Medical Record Prior Living Arrangements House Household Members spouse Type of transporation used prior to Drives own vehicle admit Independent with ADL's Yes Is patient alert and oriented? Yes: Some mild memory loss Patient/Family Preference Home with Home Health Barriers to Discharge No Comment Home w/family, [facility], equipment operator intermodal yard care resources provided Discharge Plan Home with Home Health Transportation Arrangement Family Referrals Initiated Home Health Additional Comment [facility] accepts Medicare Choice List Provided Yes SNF/HH Preference [facility] Whiteboard Updated in Patient Room with Yes name and ext. # of Internet Manager Lengthy conversation with patient, spouse and son Jv today at bedside. Patient reports he has assigned his two sons as his DPOA, requested ppk if available. Spouse dx with Alz dementia three years ago and memory changes have been slow. Discussed HH services and patient agreeable, preference in [facility]. Discussed equipment operator intermodal yard care resources: [facility], in home care, INTERMEDIATE vs memory care. Provided senior resource guide. Patient and family appreciative. ALYSA Jordan kindly agreed to send this referral to [facility] which included completed and signed F2F and HH order. [facility] accepts for SOC Sunday03/10/24. Patient and family updated and remain agreeable. Discharge home today with family, [facility] RN/CSW/OT/EYEGLASS INSPECTOR, close outpatient follow up. ROBYN
== END 2024-03-07 12:51 | disposition home health service (06) | DRG 871 ==
LOC: ED 03-06 01:32 → AC 03-06 01:47
PROVIDERS: Admitting Provider Internal Medicine; Emergency Provider Emergency Medicine; PCP Internal Medicine; Referring Provider Emergency Medicine; Visit Provider Internal Medicine
DX: A41.9 Sepsis, unspecified organism (principal); G93.41 Metabolic encephalopathy; K52.9 Noninfective gastroenteritis and colitis, unspecified; E87.6 Hypokalemia; E78.5 Hyperlipidemia, unspecified; I25.10 Atherosclerotic heart disease of native coronary artery without angina pectoris; G47.33 Obstructive sleep apnea (adult) (pediatric); R29.810 Facial weakness; D69.59 Other secondary thrombocytopenia; E80.6 Other disorders of bilirubin metabolism; R47.81 Slurred speech; Z66 Do not resuscitate; Z87.891 Personal history of nicotine dependence
CPT/HCPCS: 36415; 70450; 70496; 70498; 70551; 71045; 74177; 76705; 80048; 80053; 80061; 80074; 81003; 83036; 83605; 83690; 84145; 85025; 85610; 85730; 87040; 87633; 92523; 92610; 93005; 93010; 93306; 96365; 96366; 96367; 96375; 97129; 97161; 97166; 97530; 97535; 99284; 99285; J0744; J2405; Q9967

== ENCOUNTER 2024-08-18 16:09 | Emergency (ER) | payer OTHER, SELFPAY ==
[2024-03-06 11:12] VITALS: BMI 25.0
[2024-08-18] VITALS (13 sets, daily range): BP systolic 158–188; BP diastolic 72–97; PULSE 55–79; RESP 16–24; TEMP 36.6; O2SAT 97–99; BMI 26.3
--- NOTE | 2024-08-18 | DI.CT.S_ITS ---
PROCEDURE: CT ANGIO HEAD AND NECK INDICATIONS: STROKE LIKE SYMPTOMS TECHNIQUE: After the administration of intravenous contrast, 1 mm thick sections acquired from the aortic arch through the [place]. 3-dimensional vddttxh-alaelvmsw-mukgiwkjjm (MIP) and/or volume rendering reformats were acquired of the central intracranial vasculature and neck separately. For radiation dose reduction, the following was used: automated exposure control, adjustment of mA and/or kV according to patient size. COMPARISON: [facility], CT, CT HEAD/BRAIN WO CON, 08/18/2024, 16:38. [facility], CT, CT ANGIO HEAD AND NECK, 03/06/2024, 1:15. FINDINGS: Image quality: Diagnostic. BRAIN: CSF spaces: Ventricles are normal in size and shape. Basal cisterns are patent. No extra-axial fluid collections. Brain: No significant abnormality of the brain can be seen. Skull and face: Calvarium and facial bones appear intact, without suspicious lesions. Orbits appear normal. Sinuses: Sinuses and mastoids are clear. HEAD CT ANGIOGRAPHY: Anterior circulation: Intracranial internal carotid arteries are normal in size and flow. The flow within the paired anterior cerebral arteries is normal and symmetric. The flow within the middle cerebral arteries is normal and symmetric. The anterior communicating artery is seen. No aneurysms are seen. Posterior circulation: Visualized portions of the vertebral arteries demonstrate normal caliber, and join to form a normal appearing basilar artery. Flow within the posterior cerebral arteries is normal and symmetric. No aneurysms are seen. NECK CT ANGIOGRAPHY: Carotid system: The great vessels demonstrate a conventional anatomy as they arise from the aortic arch. The origins of the common carotid arteries appear patent. The common carotid arteries demonstrate normal caliber and courses. Mild bilateral proximal internal carotid artery stenotic disease, less than 50%, non flow limiting. Posterior circulation: The origins of the vertebral arteries both appear widely patent. The more superior extracranial portions of both vertebral arteries also demonstrate normal courses and calibers. They join to form a normal appearing basilar artery. Soft tissues: Visualized neck soft tissues demonstrate no suspicious abnormalities. Bones: No suspicious bony lesions. Visualized cervical spine appears normally aligned. IMPRESSION: No significant intracranial arterial abnormality is seen. No significant abnormality is seen within the arteries of the neck. Any quantitative measurements of stenosis were performed using NASCET criteria. Dictated by: Rdige Elaine M.D. on 08/18/2024 at 17:00 Approved by: Ridge Elaine M.D. on 08/18/2024 at 17:02
--- NOTE | 2024-08-18 16:24 | DI.CT.S_ITS ---
PROCEDURE: CT HEAD/BRAIN WO CON INDICATIONS: Positive BE-FAST, Stroke symptoms TECHNIQUE: Noncontrast 4.5 mm thick angled axial sections acquired from the foramen magnum to the vertex, with coronal and sagittal reformats. For radiation dose reduction, the following was used: automated exposure control, adjustment of mA and/or kV according to patient size. COMPARISON: [facility], MR, MR HEAD/BRAIN WO CON, 03/06/2024, 7:41. [facility], CT, CT HEAD/BRAIN WO CON, 03/05/2024, 22:41. FINDINGS: Image quality: Diagnostic. CSF spaces: Basal cisterns are patent. No extra-axial fluid collections. The ventricles are symmetric in size and shape. Brain: No intracranial bleeds or masses. There is cerebral volume loss for age, with resultant ventricular and sulcal prominence. There are periventricular and deep white matter chronic small vessel ischemic changes. There is intracranial internal carotid artery atherosclerosis. Skull and face: Calvarium and visualized facial bones appear intact, without suspicious lesions. Sinuses: Visualized sinuses and mastoids are clear. IMPRESSION: No acute intracranial pathology. Dictated by: Ridge Elaine M.D. on 08/18/2024 at 16:59 Approved by: Ridge Elaine M.D. on 08/18/2024 at 17:00
--- NOTE | 2024-08-18 16:24 | DI.RAD.S_ITS ---
PROCEDURE: XR CHEST 1V INDICATIONS: Possible stroke TECHNIQUE: One view of the chest was acquired. COMPARISON: [facility], CR, XR CHEST 1V, 03/05/2024, 20:21. FINDINGS: Surgical changes and devices: None. Lungs and pleura: Lungs are clear. No pleural effusions or pneumothorax. Probable tiny benign calcified granuloma projecting over the right lung. Mediastinum: Mediastinal contours appear normal. Heart size is normal. Bones and chest wall: No suspicious bony lesions. Small calcific foci project over the left upper arm and axilla, possibly vascular. IMPRESSION: No acute cardiopulmonary abnormality is seen. Approved by: Leonid Nickerson M.D. on 08/18/2024 at 17:01
--- NOTE | 2024-08-18 16:31 | EKG_ITS ---
[address] [address] Test Date: 2024-08-18 Pat Name: Cl Otto Department: [facility] Room: Gender: Male Process Control Technician: TERRENCE : 1945 Requested By: Order Number: [id number] Reading MD: Josh Tellez Measurements Intervals Kevin Rate: 63 P: 61 LA: 160 QRS: 36 QRSD: 76 T: 47 QT: 408 QTc: 417 Interpretive Statements Normal sinus rhythm Electronically Signed On 08-19-2024 14:44:17 PDT by Josh Tellez
[2024-08-18 16:46] LABS: Add Manual Diff / Slide Review NO; Basophils Absolute Auto 0 /uL (0-100); Basophils Percent Auto 0.8 % (0-2); Eosinophils Absolute Auto 200 /uL (0-450); Eosinophils Percent Auto 4.5 % (2-4); Hematocrit 44.4 % (41-53); Hemoglobin 15.4 g/dL (13.5-17.5); Lymphocytes Absolute Auto 1400 /uL (1100-4500); Lymphocytes Percent Auto 29.3 % (25-40); Mean Corpuscular HGB Conc 34.7 % (30-36); Mean Corpuscular Hemoglobin 32.7 PG (26-34); Mean Corpuscular Volume 94.2 fL (80-100); Monocytes Absolute Auto 400 /uL (0-900); Monocytes Percent Auto 7.8 % (3-14); Neutrophils Absolute Auto 2700 /uL (1500-7000); Neutrophils Percent Auto 57.6 % (50-75); Platelet Count 126 X10^3/uL (150-400); Red Blood Cell Count 4.71 X10^6/uL (4.5-5.9); Red Cell Distribution Width 13.2 % (11.6-14.8); White Blood Cell Count 4.7 X10^3/uL (4.5-11.0)
[2024-08-18 16:59] LABS: Prothrombin Time 10.9 SECONDS (9.4-12.5)
[2024-08-18 17:00] LABS: Alanine Aminotransferase 22 IU/L (<50); Albumin Globulin Ratio 1.5 (1.0-2.8); Alkaline Phosphatase 60 U/L (38-126); Aspartate Aminotransferase 33 IU/L (17-59); BUN Creatinine Ratio 18.2 (6-22); Bilirubin Total 0.9 mg/dL (0.2-1.3); Blood Urea Nitrogen 18 mg/dL (9-20); Calcium 9.8 mg/dL (8.4-10.2); Carbon Dioxide 28 mmol/L (22-32); Chloride 103 mmol/L (98-107); Creatine Kinase 125 U/L (55-170); Estimated Glomerular Filt Rate > 60 mL/min (>60); Globulin 3.3 g/dL (1.7-4.1); Glucose 89 mg/dL (80-110); HEMOLYSIS < 15 (0-50); Magnesium 1.9 mg/dL (1.6-2.3); Sodium 141 mmol/L (137-145); Total Protein 8.3 g/dL (6.3-8.2)
[2024-08-18 17:01] LABS: PTT Partial Thromboplastin Tim 37 SECONDS (25.1-36.5)
[2024-08-18 17:12] LABS: Troponin I < 0.012 ng/mL (0.01-0.034)
[2024-08-18 17:18] LABS: Ur Creatinine Normal (Normal); Ur Specific Gravity Normal (Normal); Urine Amphetamines Negative (Negative); Urine Barbiturates Negative (Negative); Urine Benzodiazepines Negative (Negative); Urine Cocaine Negative (Negative); Urine MDMA Negative (Negative); Urine Methadone Negative (Negative); Urine Methamphetamines Negative (Negative); Urine Opiates Negative (Negative); Urine Oxycodone Negative (Negative); Urine Phencyclidine Negative (Negative); Urine THC Negative (Negative); Urine Tricyclic Antidepressant Negative (Negative); Urine pH Normal (Normal)
--- NOTE | 2024-08-18 19:42 | ED.NEUROSD ---
HPI - Neuro Symptoms/Deficit General Chief Complaint: Neuro Symptoms/Deficit Stated Complaint: poss stroke Time Seen by Provider: 08/18/24 17:58 Source: patient and family Mode of arrival: Ambulatory History of Present Illness HPI Narrative: Patient is an 78-year-old male stated that earlier this afternoon he had a 30 minute episode where he stated that he could not see out of the left side of his visual field. He states he was working on a computer most of the day. He states that is not necessarily normal for him when he was looking at some pictures on the computer and noticed that he could not see the picture on the left side. It seemed to be present when he closed his right eye in his left eye. It was consistent for about 30 minutes and then it has now completely resolved and he has been asymptomatic for several hours. He had no other associated symptoms with this. No headache, chest pain, palpitations, speech issues, balance issues or numbness and tingling in his upper and lower extremities. Has never had anything like this in the past On Anticoagulants: No Related Data Home Medications Medication Instructions Recorded Confirmed glucos sul [id number] 1 cap PO DAILY 04/05/22 03/18/24 [Glucosamine Chondroitin] multivitamin 1 tab PO DAILY 04/05/22 03/18/24 omega-3 fatty acids 1,000 mg 1,000 mg PO DAILY 04/05/22 03/18/24 capsule turmeric 500 mg PO DAILY 06/28/23 03/18/24 Previous Rx's Medication Instructions Recorded rosuvastatin 10 mg tablet 10 mg PO DAILY #90 tabs 07/18/24 Allergies Allergy/AdvReac Type Severity Reaction Status Date / Time No Known Drug Allergies Allergy Verified 03/18/24 09:24 Review of Systems Review of Systems ROS Unobtainable: All systems reviewed & are unremarkable except as noted in HPI and below Hematologic/Lymphatic On Anticoagulants: No Patient History Medical History Do not resuscitate BPPV (benign paroxysmal positional vertigo) HSV-1 (herpes simplex virus 1) infection Actinic keratosis Overweight Coronary atherosclerosis Obstructive sleep apnea of adult History of colonic polyps Slow transit constipation 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 Social History marital status: household members: spouse lives independently: Yes occupational status: previously employed Smoking Status: Former smoker alcohol intake: current substance use type: does not use Smoking Status: Former smoker alcohol intake frequency: 0-2 drinks per day Substance Use Type: does not use Exam Initial Vital Signs Initial Vital Signs: Vital Signs Temperature 97.8 F 08/18/24 16:15 Pulse Rate 61 08/18/24 16:15 Respiratory Rate 16 08/18/24 16:15 Blood Pressure 186/97 H 08/18/24 16:15 Pulse Oximetry 98 08/18/24 16:15 Oxygen Delivery Method Room Air 08/18/24 16:15 Const General: cooperative, comfortable and No ill appearing HENMT Head: normal to inspection and normocephalic Resp Effort & Inspection: normal respiratory effort Auscultation: clear to auscultation bilaterally Cardio Rate: regular rate Rhythm: regular rhythm GI Inspection: normal to inspection and non-distended Skin General: no rashes or lesions noted Neuro General: patient alert, patient awake, patient oriented x3 and moves all extremities Cranial Nerves: CN's II-XI intact bilaterally Speech: speech normal Gait: normal gait Extrem General: normal to inspection and capillary refill normal Scores ABCD2 Age >= 60 years: yes Initial BP. Either SBP >= 140 or DBP >= 90.: yes Clinical features of the TIA: other symptoms Duration of symptoms: 10-59 minutes History of diabetes: no ABCD2 Score: 3 GCS Raina coma scale eye opening: Spontaneous Raina coma scale verbal response: Orientated [place] coma scale motor response: Obey commands [place] coma scale total score: 15 NIH Stroke Scale Level of Conciousness: Alert, keenly responsive Ask month/age: Answers both questions correctly. Open/close eyes, close hand: Performs both tasks correctly Best gaze horizontal: Normal Visual werner: No visual loss Facial palsy: Normal symetrical movement Left arm drift: No drift for full 10 sec Right arm drift: No drift for full 10 sec Left leg drift: No drift for full 5 sec Right leg drift: No drift for full 5 sec Limb ataxia: Absent Sensory on face/arms/legs: Normal, no sensory loss Best language: No aphasia, normal Dysarthria: Normal Extinction or inattention: No abnormality Total NIH Stroke scale score: 0 Course Orders Ordered: ED Orders 08/18/24 16:24 CT head/brain wo con Stat XR chest 1V Stat EKG-12 Lead Stat 10/28/24 16:30 Complete Blood Count AUTO DIFF Stat Comprehensive Metabolic Panel Stat Magnesium Stat PTT Partial Thromboplastin Zack Stat Prothrombin Time INR Stat Troponin & CK Cardiac Panel Stat 08/18/24 17:05 Urine Drug Screen, Rapid Stat Discontinued Medications Ondansetron HCl (Ondansetron 4 Mg/2 Ml Inj) 4 mg IV NOW PRN PRN Reason: Nausea And Vomiting Ondansetron HCl (Ondansetron 4 Mg Odt) 4 mg SL NOW PRN PRN Reason: Nausea And Vomiting Vital Signs Vital signs: Vital Signs - 8 hr 08/18/24 16:15 08/18/24 17:01 08/18/24 17:01 Temperature 97.8 F Pulse Rate 61 59 L Respiratory Rate 16 Blood Pressure 186/97 H 183/85 H Pulse Oximetry 98 98 Oxygen Delivery Method Room Air 08/18/24 17:16 08/18/24 17:16 08/18/24 17:30 Temperature Pulse Rate 60 Respiratory Rate Blood Pressure 181/82 H 169/82 H Pulse Oximetry 97 Oxygen Delivery Method 08/18/24 17:30 08/18/24 17:45 08/18/24 17:45 Temperature Pulse Rate 55 L 59 L Respiratory Rate 21 Blood Pressure 183/76 H Pulse Oximetry 98 97 Oxygen Delivery Method 08/18/24 18:00 08/18/24 18:00 08/18/24 18:15 Temperature Pulse Rate 57 L 57 L Respiratory Rate 19 18 Blood Pressure 164/96 H Pulse Oximetry 98 97 Oxygen Delivery Method 08/18/24 18:15 08/18/24 18:30 08/18/24 18:30 Temperature Pulse Rate 56 L Respiratory Rate 19 Blood Pressure 159/74 H 158/72 H Pulse Oximetry 98 Oxygen Delivery Method 08/18/24 18:53 08/18/24 18:53 08/18/24 19:00 Temperature Pulse Rate 58 L 58 L Respiratory Rate 18 17 Blood Pressure 180/81 H Pulse Oximetry 98 98 Oxygen Delivery Method 08/18/24 19:00 08/18/24 19:15 08/18/24 19:15 Temperature Pulse Rate 79 Respiratory Rate 19 Blood Pressure 174/81 H 167/77 H Pulse Oximetry 98 Oxygen Delivery Method 08/18/24 19:30 08/18/24 19:30 08/18/24 19:46 Temperature Pulse Rate 60 Respiratory Rate 24 Blood Pressure 185/88 H 188/89 H Pulse Oximetry 99 Oxygen Delivery Method Room Air 08/18/24 19:46 Temperature Pulse Rate 68 Respiratory Rate 20 Blood Pressure Pulse Oximetry 97 Oxygen Delivery Method Room Air MDM - Neuro Symptoms/Deficit Lab Data Attestation: I reviewed the patient's lab results. 08/18/24 16:30 08/18/24 16:30 Labs: Lab Results 08/18/24 08/18/24 Range/Units 16:30 17:05 WBC 4.7 (4.5-11.0) X10^3/uL RBC 4.71 (4.5-5.9) X10^6/uL Hgb 15.4 (13.5-17.5) g/dL Hct 44.4 (41-53) % MCV 94.2 (80-100) fL MCH 32.7 (26-34) PG MCHC 34.7 (30-36) % RDW 13.2 (11.6-14.8) % Plt Count 126 L (150-400) X10^3/uL Neut % (Auto) 57.6 (50-75) % Lymph % (Auto) 29.3 (25-40) % [place] % (Auto) 7.8 (3-14) % Eos % (Auto) 4.5 H (2-4) % Baso % (Auto) 0.8 (0-2) % Neut # (Auto) 2700 (3250-4798) /uL Lymph # (Auto) 1400 (5095-5332) /uL [place] # (Auto) 400 (0-900) /uL Eos # (Auto) 200 (0-450) /uL Baso # (Auto) 0 (0-100) /uL PT 10.9 (9.4-12.5) SECONDS INR 1.0 (0.9-1.3) APTT 37 H (25.1-36.5) SECONDS Sodium 141 (137-145) mmol/L Potassium 4.0 (3.4-5.1) mmol/L Chloride 103 (98-107) mmol/L Carbon Dioxide 28 (22-32) mmol/L BUN 18 (9-20) mg/dL Creatinine 0.99 (0.66-1.25) mg/dL Estimated GFR > 60 (>60) mL/min BUN/Creatinine Ratio 18.2 (6-22) Glucose 89 (80-110) mg/dL Calcium 9.8 (8.4-10.2) mg/dL Magnesium 1.9 (1.6-2.3) mg/dL Total Bilirubin 0.9 (0.2-1.3) mg/dL AST 33 (17-59) IU/L ALT 22 (<50) IU/L Alkaline Phosphatase 60 (38-126) U/L Total Creatine Kinase 125 (55-170) U/L Troponin I < 0.012 (0.01-0.034) ng/mL Total Protein 8.3 H (6.3-8.2) g/dL Albumin 5.0 (3.5-5.0) g/dL Globulin 3.3 (1.7-4.1) g/dL Albumin/Globulin Ratio 1.5 (1.0-2.8) U Opiates 300ng/mL cut Negative (Negative) Ur Oxycodone Screen Negative (Negative) Urine Methadone Screen Negative (Negative) Ur Barbiturates Screen Negative (Negative) U Tricyclic Antidepress Negative (Negative) Ur Phencyclidine Scrn Negative (Negative) Ur Amphetamines Screen Negative (Negative) U Methamphetamines Scrn Negative (Negative) Ur MDMA Scrn (Ecstasy) Negative (Negative) U Benzodiazepines Scrn Negative (Negative) Urine Cocaine Screen Negative (Negative) U Marijuana (THC) Screen Negative (Negative) Urine pH Normal (Normal) Urine Specific [place] Normal (Normal) Ur Creatinine Normal (Normal) Urine Dip Bedside Urine Glucose Negative Bedside Urine Bilirubin - Negative Bedside Urine Ketone - Negative Urine Specific [place] 1.000 Bedside Urine Occult Blood - Negative Bedside Urine pH 6.0 Bedside Urine Protein - Negative Bedside Urine Urobilinogen - Negative Bedside Urine Nitrite - Negative Bedside Urine Leukocytes - Negative Esterase Imaging Data CTA - brain/neck: Radiologist's Impression: PROCEDURE: CT ANGIO HEAD AND NECK INDICATIONS: STROKE LIKE SYMPTOMS TECHNIQUE: After the administration of intravenous contrast, 1 mm thick sections acquired from the aortic arch through the [place] of [place]. 3-dimensional lwjtzgq-mcelbpzna-yassufroax (MIP) and/or volume rendering reformats were acquired of the central intracranial vasculature and neck separately. For radiation dose reduction, the following was used: automated exposure control, adjustment of mA and/or kV according to patient size. COMPARISON: [facility], CT, CT HEAD/BRAIN WO CON, 08/18/2024, 16:38. [facility], CT, CT ANGIO HEAD AND NECK, 03/06/2024, 1:15. FINDINGS: Image quality: Diagnostic. BRAIN: CSF spaces: Ventricles are normal in size and shape. Basal cisterns are patent. No extra-axial fluid collections. Brain: No significant abnormality of the brain can be seen. Skull and face: Calvarium and facial bones appear intact, without suspicious lesions. Orbits appear normal. Sinuses: Sinuses and mastoids are clear. HEAD CT ANGIOGRAPHY: Anterior circulation: Intracranial internal carotid arteries are normal in size and flow. The flow within the paired anterior cerebral arteries is normal and symmetric. The flow within the middle cerebral arteries is normal and symmetric. The anterior communicating artery is seen. No aneurysms are seen. Posterior circulation: Visualized portions of the vertebral arteries demonstrate normal caliber, and join to form a normal appearing basilar artery. Flow within the posterior cerebral arteries is normal and symmetric. No aneurysms are seen. NECK CT ANGIOGRAPHY: Carotid system: The great vessels demonstrate a conventional anatomy as they arise from the aortic arch. The origins of the common carotid arteries appear patent. The common carotid arteries demonstrate normal caliber and courses. Mild bilateral proximal internal carotid artery stenotic disease, less than 50%, non flow limiting. Posterior circulation: The origins of the vertebral arteries both appear widely patent. The more superior extracranial portions of both vertebral arteries also demonstrate normal courses and calibers. They join to form a normal appearing basilar artery. Soft tissues: Visualized neck soft tissues demonstrate no suspicious abnormalities. Bones: No suspicious bony lesions. Visualized cervical spine appears normally aligned. IMPRESSION: No significant intracranial arterial abnormality is seen. No significant abnormality is seen within the arteries of the neck. Any quantitative measurements of stenosis were performed using NASCET criteria CT scan - head: Radiologist's Impression: PROCEDURE: CT HEAD/BRAIN WO CON INDICATIONS: Positive BE-FAST, Stroke symptoms TECHNIQUE: Noncontrast 4.5 mm thick angled axial sections acquired from the foramen magnum to the vertex, with coronal and sagittal reformats. For radiation dose reduction, the following was used: automated exposure control, adjustment of mA and/or kV according to patient size. COMPARISON: [facility], MR, MR HEAD/BRAIN WO CON, 03/06/2024, 7:41. [facility], CT, CT HEAD/BRAIN WO CON, 03/05/2024, 22:41. FINDINGS: Image quality: Diagnostic. CSF spaces: Basal cisterns are patent. No extra-axial fluid collections. The ventricles are symmetric in size and shape. Brain: No intracranial bleeds or masses. There is cerebral volume loss for age, with resultant ventricular and sulcal prominence. There are periventricular and deep white matter chronic small vessel ischemic changes. There is intracranial internal carotid artery atherosclerosis. Skull and face: Calvarium and visualized facial bones appear intact, without suspicious lesions. Sinuses: Visualized sinuses and mastoids are clear. IMPRESSION: No acute intracranial pathology. Chest x-ray: Radiologist's Impression: PROCEDURE: XR CHEST 1V INDICATIONS: Possible stroke TECHNIQUE: One view of the chest was acquired. COMPARISON: [facility], , XR CHEST 1V, 03/05/2024, 20:21. FINDINGS: Surgical changes and devices: None. Lungs and pleura: Lungs are clear. No pleural effusions or pneumothorax. Probable tiny benign calcified granuloma projecting over the right lung. Mediastinum: Mediastinal contours appear normal. Heart size is normal. Bones and chest wall: No suspicious bony lesions. Small calcific foci project over the left upper arm and axilla, possibly vascular. IMPRESSION: No acute cardiopulmonary abnormality is seen. ECG Data Attestation: I personally reviewed and interpreted this ECG as follows: Interpretation: Sinus rhythm Ventricular rate is 63 Normal axis Normal QRS Normal QTC No ST T wave changes MDM Narrative Medical decision making narrative: Patient is now asymptomatic. NIH score of 0. ABCD2 score of 3. Is somewhat hypertensive and he states he does not have a history of hypertension. His workup here in the emergency department is negative to include head CT and CTA of the head and neck. Labs unremarkable. We did discuss the possibility that this is a TIA versus CVA that is not apparent on the CT scan. We discussed he was symptoms. We discussed admission to the hospital versus follow-up as an outpatient. Recommended admission to the hospital however the patient states that his has early end-stage Alzheimer's and really should be home alone. He stated that he understand the risks and benefits of going home versus admission to the hospital and he would like to be discharged home and will contact his primary care doctor for follow-up. Will he was given return precautions and follow-up instructions. He expressed understanding and agreement with the plan. Discharge Plan Departure Patient Disposition: Home Clinical Impression: Changes in vision, Hypertension Instructions: Hypertension (Alternative Therapy) Activity Restrictions/Additional Instructions: Recommend that you continue to take all of your medications as directed. Also recommend purchase a blood pressure cuff and start taking your pressure on a daily basis like we discussed. I also recommend that tomorrow you contact your primary care doctor for follow-up to discuss the indications for further testing of your blood pressure and also discussed the indications for further workup of your symptoms that you presented with today. Return to the emergency department for new or worsening symptoms. Prescriptions: No Action rosuvastatin 10 mg tablet 10 mg PO DAILY Qty: 90 3RF turmeric 500 mg PO DAILY multivitamin Tablet 1 tab PO DAILY glucos sul [id number] [Glucosamine Chondroitin] 1 cap PO DAILY omega-3 fatty acids 1,000 mg capsule 1,000 mg PO DAILY Referrals: Neal Guillory MD [Primary Care Provider] - Stand Alone Forms: Patient Portal/API/Survey
== END 2024-08-18 20:09 | disposition home or self-care (01) ==
PROVIDERS: Emergency Medicine; Emergency Provider Emergency Medicine; PCP Internal Medicine
DX: H53.9 Unspecified visual disturbance (principal); I10 Essential (primary) hypertension
CPT/HCPCS: 70450; 70496; 70498; 71045; 80053; 80305; 81003; 82550; 83735; 84484; 85025; 85610; 85730; 93005; 99284; Q9967

== ENCOUNTER → 2025-04-02 11:10 | Outpatient (CLI) | payer OTHER, SELFPAY ==
[2024-03-06 11:12] VITALS: BMI 25.0
[2025-04-02 13:08] LABS: Aspartate Aminotransferase 33 IU/L (17-59); BUN Creatinine Ratio 18.7 (6-22); Blood Urea Nitrogen 20 mg/dL (9-20); Calcium 9.6 mg/dL (8.4-10.2); Carbon Dioxide 28 mmol/L (22-32); Chloride 104 mmol/L (98-107); Cholesterol 117 mg/dL (140-199); Estimated Glomerular Filt Rate > 60 mL/min (>60); Glucose 89 mg/dL (70-99); HDL Cholesterol 41 mg/dL (40-60); HEMOLYSIS < 15 (0-50); LDL Cholesterol Calculated 53 mg/dL (<100); Potassium 5.1 mmol/L (3.4-5.1); Sodium 139 mmol/L (137-145); Triglycerides 116 mg/dL (35-150)
[2025-04-02 13:33] LABS: Prostate Specific Antigen 0.644 ng/mL (0.10-4.00)
== END ==
PROVIDERS: PCP Internal Medicine; Referring Provider Internal Medicine; Visit Provider Internal Medicine
DX: E78.2 Mixed hyperlipidemia (principal); N40.1 Benign prostatic hyperplasia with lower urinary tract symptoms; I25.10 Atherosclerotic heart disease of native coronary artery without angina pectoris; N13.8 Other obstructive and reflux uropathy
CPT/HCPCS: 36415; 80048; 80061; 84153; 84450

== ENCOUNTER → 2025-07-21 14:27 | Outpatient (CLI) | payer OTHER, SELFPAY ==
[2024-03-06 11:12] VITALS: BMI 25.0
[2025-07-21 15:27] LABS: Hematocrit 41.5 % (41-53); Hemoglobin 14.6 g/dL (13.5-17.5); Mean Corpuscular HGB Conc 35.1 % (30-36); Mean Corpuscular Hemoglobin 32.5 PG (26-34); Mean Corpuscular Volume 92.5 fL (80-100); Platelet Count 130 X10^3/uL (150-400)
[2025-07-21 15:49] LABS: Blood Urea Nitrogen 22 mg/dL (9-20); Calcium 9.5 mg/dL (8.4-10.2); Carbon Dioxide 24 mmol/L (22-32); Chloride 105 mmol/L (98-107); Estimated Glomerular Filt Rate > 60 mL/min (>60); Glucose 102 mg/dL (70-99); HEMOLYSIS < 15 (0-50); Potassium 4.3 mmol/L (3.4-5.1); Sodium 140 mmol/L (137-145)
[2025-07-21 15:52] LABS: Hemoglobin A1C% w Est Avg Glu 5.3 % (4.0-6.0)
[2025-07-21 16:19] LABS: TSH w/ Reflex to FT4 1.53 uIU/mL (0.47-4.68)
[2025-07-21 16:37] LABS: Vitamin B12 Reflex MMA if <400 388 pg/mL (239-931)
[2025-07-27 10:36] LABS: Albumin 4.0 g/dL (2.9-4.4); Alpha-1-Globulin 0.2 g/dL (0.0-0.4); Alpha-2-Globulin 0.6 g/dL (0.4-1.0); Gamma Globulin 1.0 g/dL (0.4-1.8)
== END ==
PROVIDERS: PCP Internal Medicine; Referring Provider Internal Medicine; Visit Provider Internal Medicine
DX: R73.01 Impaired fasting glucose (principal); R94.6 Abnormal results of thyroid function studies; R77.9 Abnormality of plasma protein, unspecified; I25.10 Atherosclerotic heart disease of native coronary artery without angina pectoris; E53.8 Deficiency of other specified B group vitamins
CPT/HCPCS: 36415; 80048; 82607; 83036; 83921; 84155; 84165; 84443; 85027